=== PATIENT | female | born 1930 | race Caucasian/White ===

== ENCOUNTER → 2016-10-20 | Outpatient (CLI) | payer MEDICARE, OTHER ==
[2014-08-20 15:00] VITALS: BP 149/62
[~2016-10-20] MED LIST: ALLO300T PO; ASPI-482 PO; FOLI0.8T3 PO; FURO80TA3 PO; ISOS30TA4 PO; LISI-338 PO; METO25TA9 PO; OMEP20CA9 PO; POTA20TA12 PO; PROP150T2 PO; WARF3TAB7 PO; WARF4TAB7 PO
--- NOTE | 2016-10-21 16:24 | CARD ---
APPROVED REPORT EXAM: Two-dimensional and M-mode echocardiogram with Doppler and color Doppler. Other Information Quality : GoodHR: 61bpm Rhythm : NSR INDICATION Fatigue, Short of air 2D DIMENSIONS RVDd3.3 (2.9-3.5cm)Left Atrium(2D)4.8 (1.6-4.0cm) IVSd1.1 (0.7-1.1cm)Aortic Root(2D)2.6 (2.0-3.7cm) LVDd3.7 (3.9-5.9cm)LVOT Diameter2.3 (1.8-2.4cm) PWd1.2 (0.7-1.1cm)LVDs2.8 (2.5-4.0cm) FS (%) 23.6 %SV28.2 ml LVEF(%)50.0 (>50%) Aortic Valve AoV Peak Aston.285.8cm/sAoV VTI64.6cm AO Peak GR.32.7mmHgLVOT Peak Aston.87.3cm/s AO Mean GR.16mmHgAVA (VMAX)1.24cm2 AI P 1/2 [id number] Mitral Valve MV E Bkiabrmg732.5cm/sMV E Peak Gr.5mmHg MV DECEL [id number] A Zsydkiqv098.0cm/s MV E Mean Gr.2mmHgE/A Ratio1.1 MV A [id number] Pulmonary Valve PV Peak Rgdrkwlb091.5cm/s Tricuspid Valve TR P. Snqpotqw366uz/sTR Peak Gr.31mmHg Pulmonary Vein S1 Xybyjnjr04.3cm/sD2 Okxlsxba76.5cm/s PVa vvecrott56ityx LEFT VENTRICLE The left ventricle cavity is small. There is mild concentric left ventricular hypertrophy. The left v entricular systolic function is normal and the ejection fraction is within normal range. The Ejection Fraction is 50 %. There is normal LV segmental wall motion. Transmitral Doppler flow pattern is Grad e II-pseudonormal filling dynamics. RIGHT VENTRICLE The right ventricle is normal size. There is normal right ventricular wall thickness. The right ventr icular systolic function is normal. ATRIA The left atrium is moderately dilated. The right atrium size is normal. The interatrial septum is int act with no evidence for an atrial septal defect or patent foramen ovale as noted on 2-D or Doppler i maging. AORTIC VALVE Doppler and Color Flow revealed mild to moderate aortic regurgitation. 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 Flow velocities across the prosthetic valve are mildly elevated at 2.9 m/s but it opens well. The aortic valve maximu m pressure gradient is 33 mmHg and mean pressure gradient is 16 mmHg. This is a normal finding in a m echanical valve MITRAL VALVE Mitral annular calcification is mild. The mitral valve leaflets are thickened. There is no evidence o f mitral valve prolapse. There is no mitral valve stenosis. Doppler and Color Flow revealed mild to m oderate mitral regurgitation. TRICUSPID VALVE Doppler and Color Flow revealed mild tricuspid regurgitation. The pulmonary artery systolic pressure is estimated at 34 mmHg. There is mild pulmonary hypertension. PULMONIC VALVE The pulmonary valve is not well visualized but appears to opens well. Doppler and Color Flow revealed no pulmonic valvular regurgitation. GREAT VESSELS The aortic root is normal in size. The ascending aorta is mildly dilated. The pulmonary artery is nor mal. The IVC is normal in size and collapses >50% with inspiration. PERICARDIAL EFFUSION There is no evidence of significant pericardial effusion. Critical Notification Critical Value: No <Conclusion> The left ventricular systolic function is normal and the ejection fraction is within normal range. The Ejection Fraction is 50 %. Transmitral Doppler flow pattern is Grade II-pseudonormal filling dynamics. There is mild concentric left ventricular hypertrophy. The left atrium is moderately dilated. The right atrium size is normal. Doppler and Color Flow revealed mild to moderate mitral regurgitation. Mitral annular calcification is mild. The mitral valve leaflets are thickened. Doppler and Color Flow revealed mild tricuspid regurgitation. The pulmonary artery systolic pressure is estimated at 34 mmHg. There is mild pulmonary hypertension. The pulmonary valve is not well visualized but appears to opens well. Doppler and Color Flow revealed no pulmonic valvular regurgitation. The ascending aorta is mildly dilated. Doppler and Color Flow revealed mild to moderate aortic regurgitation. 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 Flow velocities across the prosthetic valve are mildly elevated at 2.9 m/s but it opens well. The aortic valve maximum pressure gradient is 33 mmHg and mean pressure gradient is 16 mmHg. This is a normal finding in a mechanical valve There is no evidence of significant pericardial effusion.
== END | disposition home or self-care (01) ==
LOC: ECHO 12:30
PROVIDERS: ATTEND Internal Medicine Cardiovascular Disease
DX: I08.3 Combined rheumatic disorders of mitral, aortic and tricuspid valves (principal); R53.83 Other fatigue; R06.02 Shortness of breath; Z95.2 Presence of prosthetic heart valve
CPT/HCPCS: 93306

== ENCOUNTER → 2018-12-22 | Outpatient (CLI) | payer MEDICARE, OTHER ==
[2014-08-20 15:00] VITALS: BP 149/62
[~2018-12-22] MED LIST changes: +METO-239 PO; -METO25TA9 PO; +OMEP20CA10 PO; -OMEP20CA9 PO; +WARF3TAB50 PO; -WARF3TAB7 PO; +WARF4TAB64 PO; -WARF4TAB7 PO
--- NOTE | 2018-12-22 16:34 | CARD ---
MR#: [id number] Date of Study: 12/22/2018 Ordering Physician: MARISSA HORAN, Referring Physician: MARISSA HORAN, Tech: Ros Santamaria SHRADDHA APPROVED REPORT EXAM: Two-dimensional and M-mode echocardiogram with Doppler and color Doppler. Other Information Quality : AverageHR: 53bpm Rhythm : Bradycardia INDICATION Aortic Valve replacement Surgery/Intervention Status/Post Aortic Valve Replacement: Date: 1996 2D DIMENSIONS RVDd3.0 (2.9-3.5cm)Left Atrium(2D)4.2 (1.6-4.0cm) IVSd1.8 (0.7-1.1cm)Aortic Root(2D)3.2 (2.0-3.7cm) LVDd5.0 (3.9-5.9cm)LVOT Diameter2.2 (1.8-2.4cm) PWd1.3 (0.7-1.1cm)LVDs3.8 (2.5-4.0cm) FS (%) 25.2 %SV59.3 ml LVEF(%)50.0 (>50%) M-Mode DIMENSIONS Left Atrium(MM)4.80 (2.5-4.0cm)Aortic Root3.61 (2.2-3.7cm) Aortic Valve AoV Peak Aston.294.3cm/sAoV VTI64.7cm AO Peak GR.34.7mmHgLVOT Peak Aston.66.6cm/s AO Mean GR.16mmHgAVA (VMAX)0.83cm2 JESUS (VTI)0.57iq4ZY P 1/2 Ajgx387cm Mitral Valve MV E Ujmjdhiy159.2cm/sMV E Peak Gr.9mmHg MV DECEL [id number] A Fxsvfmix74.4cm/s MV E Mean Gr.3mmHgE/A Ratio1.6 Pulmonary Valve PV Peak Iwssyrjz09.0cm/s Tricuspid Valve TR P. Zohmlhsg020xm/sRAP YNOGZEGV2syYu TR Peak Gr.12yhTjXFIM12zyPr LEFT VENTRICLE The left ventricle is normal size. There is moderate concentric left ventricular hypertrophy. Left ve ntricle systolic function is low normal. The Ejection Fraction is 50-55%. There is normal LV segmenta l wall motion. Transmitral Doppler flow pattern is abnormal. RIGHT VENTRICLE The right ventricle is normal size. There is normal right ventricular wall thickness. The right ventr icular systolic function is normal. ATRIA The left atrium is mildly dilated. The right atrium size is normal. The interatrial septum is intact with no evidence for an atrial septal defect or patent foramen ovale as noted on 2-D or Doppler imagi ng. AORTIC VALVE Aortic valve post replacemant with a mechanical aortic valve in place. Doppler and Color Flow reveale d mild to moderate aortic regurgitation. The mechanical aortic valve has a maximum pressure gradient of 35 mmHg and mean pressure gradient of 16 mmHg and opens well. The mechanical aortic valve appears well seated. MITRAL VALVE The mitral valve is thickened but opens well. There is no evidence of mitral valve prolapse. There is no mitral valve stenosis. Doppler and Color-flow revealed mild mitral regurgitation. TRICUSPID VALVE The tricuspid valve is normal in structure and function. Doppler and Color Flow revealed mild tricusp id regurgitation. The PA pressure was estimated at 26 mmHg. There is no tricuspid valve prolapse or v egetation. There is no tricuspid valve stenosis. PULMONIC VALVE The pulmonic valve is not well visualized. GREAT VESSELS The aortic root is normal in size. The ascending aorta is moderately dilated at 4.7cm. The IVC is nor mal in size and collapses >50% with inspiration. PERICARDIAL EFFUSION There is no evidence of significant pericardial effusion. Critical Notification Critical Value: No <Conclusion> The left ventricle is normal size. Left ventricle systolic function is low normal. The Ejection Fraction is 50-55%. There is normal LV segmental wall motion. There is moderate concentric left ventricular hypertrophy. Aortic valve post replacemant with a mechanical aortic valve in place. The mechanical aortic valve appears well seated. The mechanical aortic valve has a maximum pressure gradient of 35 mmHg and mean pressure gradient of 16 mmHg and opens well. Doppler and Color Flow revealed mild to moderate aortic regurgitation. Doppler and Color-flow revealed mild mitral regurgitation. Doppler and Color Flow revealed mild tricuspid regurgitation. The PA pressure was estimated at 26 mmHg. The ascending aorta is moderately dilated at 4.7cm. Signed by : Marissa Horan MD Electronically Approved : 12/22/2018 16:34:17
== END | disposition home or self-care (01) ==
LOC: ECHO 14:46
PROVIDERS: ATTEND Internal Medicine Cardiovascular Disease
DX: I08.3 Combined rheumatic disorders of mitral, aortic and tricuspid valves (principal); Z95.2 Presence of prosthetic heart valve
CPT/HCPCS: 93306

== ENCOUNTER 2019-03-16 22:34 | Inpatient (IN) | payer MEDICARE, OTHER ==
[~2019-03-16] VITALS: Ht 170.2 cm; Wt 79.4 kg
[~2019-03-16 22:34] MED LIST changes: +AMLO5TAB10 PO; +CYCL10TA2 PO; +FURO20TA3 PO; +HYDR-2761 PO; -OMEP20CA10 PO; +OMEP20CA16 PO
[2019-03-16] MEDS ORDERED: IV NORMAL SALINE 1000ML BAG 1,000 ML IV ONE (23:00)
[2019-03-16 23:03] LABS: BASO # 0.1 x10^3/uL (0.0-0.2); BASO % 1 % (0-3); EOS # 0.1 x10^3/uL (0.0-0.7); EOS % 1 % (0-3); HEMATOCRIT 22.2 % (36.0-47.0); HEMOGLOBIN 7.4 g/dL (12.0-15.5); LYMPH # 0.9 x10^3/uL (1.0-4.8); LYMPH % 10 % (24-48); MEAN CORPUSCULAR HEMOGLOBIN 31 pg (25-35); MEAN CORPUSCULAR HGB CONC 33 g/dL (31-37); MEAN CORPUSCULAR VOLUME 92 fL (79-100); MONO # 0.7 x10^3/uL (0.0-1.1); MONO % 8 % (0-9); NEUT # 7.4 x10^3/uL (1.8-7.7); NEUT % 80 % (31-73); PLATELET COUNT 493 x10^3/uL (140-400); RED CELL DISTRIBUTION WIDTH 15.7 % (11.5-14.5); WHITE BLOOD COUNT 9.2 x10^3/uL (4.0-11.0)
[2019-03-16 23:12] LABS: PROTHROMBIN TIME PATIENT 40.8 SEC (11.7-14.0)
[2019-03-16 23:13] LABS: CALCIUM 8.2 mg/dL (8.5-10.1); CREATININE 3.2 mg/dL (0.6-1.0); GFR 13.6
[2019-03-16 23:18] LABS: ALBUMIN 2.7 g/dL (3.4-5.0); ALBUMIN/GLOBULIN RATIO 0.8 (1.0-1.7); TOTAL BILIRUBIN 0.6 mg/dL (0.2-1.0); TOTAL PROTEIN 6.3 g/dL (6.4-8.2)
--- NOTE | 2019-03-16 23:23 | PHYS DOC ---
Past Medical History Past Medical History: Hypertension, Other Additional Past Medical Histor: ESRD Past Surgical History: Other Additional Past Surgical Histo: ARTIFICAL HEART VALVE Alcohol Use: None Drug Use: None Adult General Chief Complaint Chief Complaint: MECHANICAL FALL HPI HPI 88-year-old female presents to the emergency department with complaints of altered mental status, fall. Patient was seen at this facility approximately one half weeks ago by me after a fall with left hip fracture. Patient was admitted at that time taken to surgery. She was discharged to rehabilitation, according to rehabilitation facility patient has been altered all day, she apparently fell tonight because she thought there was a massacre in the facility. Patient is clearly different from her initial presentation to me. She is able to answer some questions appropriately however then speaks without making sense. She denies any chest pain, shortness of breath, nausea, vomiting. She does complain of left leg pain. Review of Systems Review of Systems Respiratory: Denies cough or shortness of breath [] Cardiovascular: No additional information not addressed in HPI [] GI: Denies abdominal pain, nausea, vomiting, bloody stools or diarrhea [] Musculoskeletal:left hip/leg pain All other systems were reviewed and found to be within normal limits, except as documented in this note. Current Medications Current Medications Current Medications Medications (Trade) Dose Ordered Sig/Hiram Start Time Stop Time Status Last Admin Dose Admin Sodium Chloride 1,000 ml @ 1,000 mls/hr 1X ONCE 03/16/19 23:00 03/16/19 23:59 DC 03/16/19 22:58 1,000 MLS/HR Allergies Allergies Allergies Coded Allergies Type Severity Reaction Last Updated Verified Penicillins Allergy Intermediate 03/03/19 Yes Physical Exam Physical Exam Constitutional: Well developed, confused HENT: Normocephalic, atraumatic, bilateral external ears normal, oropharynx dry, nose normal. [] Eyes: PERRLA, EOMI, conjunctiva normal, no discharge. [] Cardiovascular: Bradycardia Lungs & Thorax: Bilateral breath sounds clear to auscultation [] Abdomen: Bowel sounds normal, soft, no tenderness, no masses, no pulsatile masses. [] Skin: Warm, dry, no erythema, no rash. [] Extremities: no deformity, 2-3 + edema, wheeping appreciated to right lower ext, open wound to right calf. [] Neurologic: Alert and oriented X 2, no focal deficits noted. [] Psychologic: altered mental status, poor judgement [] Current Patient Data Vital Signs Vital Signs Date Time Temp Pulse Resp B/P (MAP) Pulse Ox O2 Delivery O2 Flow Rate FiO2 03/17/19 00:47 57 17 97 03/16/19 22:35 97.8 101/44 (63) Room Air 97.8 Lab Values Laboratory Tests Test 03/16/19 22:45 03/16/19 23:30 03/17/19 00:30 White Blood Count 9.2 x10^3/uL (4.0-11.0) Red Blood Count 2.40 x10^6/uL (3.50-5.40) L Hemoglobin 7.4 g/dL (12.0-15.5) L Hematocrit 22.2 % (36.0-47.0) L Mean Corpuscular Volume 92 fL (79-100) Mean Corpuscular Hemoglobin 31 pg (25-35) Mean Corpuscular Hemoglobin Concent 33 g/dL (31-37) Red Cell Distribution Width 15.7 % (11.5-14.5) H Platelet Count 493 x10^3/uL (140-400) H Neutrophils (%) (Auto) 80 % (31-73) H Lymphocytes (%) (Auto) 10 % (24-48) L Monocytes (%) (Auto) 8 % (0-9) Eosinophils (%) (Auto) 1 % (0-3) Basophils (%) (Auto) 1 % (0-3) Neutrophils # (Auto) 7.4 x10^3/uL (1.8-7.7) Lymphocytes # (Auto) 0.9 x10^3/uL (1.0-4.8) L Monocytes # (Auto) 0.7 x10^3/uL (0.0-1.1) Eosinophils # (Auto) 0.1 x10^3/uL (0.0-0.7) Basophils # (Auto) 0.1 x10^3/uL (0.0-0.2) Prothrombin Time 40.8 SEC (11.7-14.0) H Prothrombin Time INR 4.2 (0.8-1.1) H Sodium Level 124 mmol/L (136-145) L Potassium Level 5.0 mmol/L (3.5-5.1) Chloride Level 93 mmol/L (98-107) L Carbon Dioxide Level 25 mmol/L (21-32) Anion Gap 6 (6-14) Blood Urea Nitrogen 46 mg/dL (7-20) H Creatinine 3.2 mg/dL (0.6-1.0) H Estimated GFR (Cockcroft-Gault) 13.6 BUN/Creatinine Ratio 14 (6-20) Glucose Level 182 mg/dL (70-99) H Lactic Acid Level 2.1 mmol/L (0.4-2.0) H Calcium Level 8.2 mg/dL (8.5-10.1) L Total Bilirubin 0.6 mg/dL (0.2-1.0) Aspartate Amino Transferase (AST) 35 U/L (15-37) Alanine Aminotransferase (ALT) 30 U/L (14-59) Alkaline Phosphatase 72 U/L (46-116) Troponin I Quantitative < 0.017 ng/mL (0.000-0.055) Total Protein 6.3 g/dL (6.4-8.2) L Albumin 2.7 g/dL (3.4-5.0) L Albumin/Globulin Ratio 0.8 (1.0-1.7) L O2 Saturation 91 % (92-99) L Arterial Blood pH 7.39 (7.35-7.45) Arterial Blood pCO2 at Patient Temp 36 mmHg (35-46) Arterial Blood pO2 at Patient Temp 64 mmHg (65-108) L Arterial Blood pO2 (Temp corrected) mmHg Arterial Blood HCO3 21 mmol/L (21-28) Arterial Blood Base Excess -4 mmol/L (-3-3) L FiO2 28 Urine Collection Type U cath Urine Color Yellow Urine Clarity Clear Urine pH 5.0 Urine Specific Brewster 1.010 Urine Protein Negative mg/dL (NEG-TRACE) Urine Glucose (UA) Negative mg/dL (NEG) Urine Ketones (Stick) Negative mg/dL (NEG) Urine Blood Negative (NEG) Urine Nitrite Negative (NEG) Urine Bilirubin Negative (NEG) Urine Urobilinogen Dipstick 0.2 mg/dL (0.2 mg/dL) Urine Leukocyte Esterase Negative (NEG) Urine RBC 0 /HPF (0-2) Urine WBC 0 /HPF (0-4) Urine Squamous Epithelial Cells Few /LPF Urine Amorphous Sediment Present /HPF Urine Bacteria 0 /HPF (0-FEW) Urine Mucus Slight /LPF Laboratory Tests 03/16/19 22:45 Laboratory Tests 03/16/19 22:45 EKG EKG [] Radiology/Procedures Radiology/Procedures [] Course & Med Decision Making Course & Med Decision Making Pertinent Labs and Imaging studies reviewed. (See chart for details) []88-year-old female presents to the emergency department with complaints of altered mental status, fall. Patient was seen at this facility approximately one half weeks ago by me after a fall with left hip fracture. Patient was admitted at that time taken to surgery. She was discharged to rehabilitation, according to rehabilitation facility patient has been altered all day, she apparently fell tonight because she thought there was a massacre in the facility. Patient is clearly different from her initial presentation to me. She is able to answer some questions appropriately however then speaks without making sense. She denies any chest pain, shortness of breath, nausea, vomiting. She does complain of left leg pain. Laboratory values reviewed, hemoglobin 7.4, creatinine 3.2, lactic acid 2.1, s odium 124 and INR 4.2 X-ray of left hip reveals no evidence of acute fracture x-ray left knee reveals no evidence of acute fracture CT the head reviewed She presents with altered mental status evidence of metabolic encephalopathy appreciated on laboratory studies, she does have acute on chronic kidney injury as well as mild lactic acidosis. No evidence of acute infectious process at this time. Consultation to cardiology given new onset bradycardia likely secondary to metoprolol succinate which will be held IVF continued with admission at 75ml/hr Repeat labs for the AM Admit to the ICU given bradycardia/decreased responsiveness DNR/DNI Mary Disclaimer Mary Disclaimer This electronic medical record was generated, in whole or in part, using a voice recognition dictation system. Departure Departure Impression: Primary Impression: Metabolic encephalopathy Additional Impressions: Hyponatremia Acute on chronic renal failure Coagulopathy Lactic acidosis Disposition: ADMITTED INPATIENT Admitting Physician: FRANCES Condition: GUARDED Referrals: KHUSHI RAY MD (PCP) Critical Care Time Critical care time was 40 minutes exclusive of procedures. Problem Qualifiers Additional Impressions: Acute on chronic renal failure Acute renal failure type: unspecified Chronic kidney disease stage: unspecified stage Qualified Codes: N17.9 - Acute kidney failure, unspecified; N18.9 - Chronic kidney disease, unspecified DANELLE BLACK MD Mar 16, 2019 23:23
[2019-03-16 23:39] LABS: BASE EXCESS ABG -4 mmol/L (-3-3); HCO3 ABG 21 mmol/L (21-28); PCO2 ABG 36 mmHg (35-46); PO2 ABG 64 mmHg (65-108); SAT O2 ABG 91 % (92-99)
[2019-03-16 23:41] LABS: FIO2 ABG 28
[2019-03-17] VITALS (17 sets, daily range): BP systolic 71–136; BP diastolic 31–73
[2019-03-17 00:39] LABS: BILIRUBIN,URINE NEGATIVE (NEG); CLARITY,URINE CLEAR; COLOR,URINE YELLOW; NITRITE,URINE NEGATIVE (NEG); PROTEIN,URINE NEGATIVE (NEG-TRACE); UROBILINOGEN,URINE 0.2 mg/dL (0.2 mg/dL)
[2019-03-17 00:44] LABS: AMORPHOUS SEDIMENT,UR PRESENT /HPF; BACTERIA,URINE 0 /HPF (0-FEW); RBC,URINE 0 /HPF (0-2); SQUAMOUS EPITHELIAL CELL,UR FEW /LPF; WBC,URINE 0 /HPF (0-4)
[2019-03-17] MEDS ORDERED: IV NORMAL SALINE 1000ML BAG 1,000 ML IV ONE (01:00)
[2019-03-17] MEDS ORDERED: ONDANSETRON PF 4 MG/2 ML VIAL. IV PRN (01:00)
--- NOTE | 2019-03-17 01:14 | RAD ---
Exam: CT head INDICATION: Fall TECHNIQUE: Sequential axial images through the head were obtained without the administration of IV contrast. Comparisons: 03/13/2019 FINDINGS: No focal parenchymal lesion or hemorrhage is identified. There is no midline shift or sulcal effacement. Patchy hypodensity in the periventricular white matter which is similar when compared to the prior exam. No acute vascular territory infarction is identified. Roberts-white distinction is preserved. The ventricular system is within normal limits without compression hydrocephalus. The basal cisterns are well maintained. The visualized portions of the paranasal sinuses and mastoid air cells are well-pneumatized. No acute fractures. IMPRESSION: Chronic ischemic change without acute intracranial abnormality. Exposure: One or more of the following in the visualized dose reduction techniques were utilized for this examination: 1. Automated exposure control 2. Adjustment of the MA and/or KV according to patient size Use of iterative of reconstructive technique Electronically signed by: Citlalli Charles MD (03/17/2019 1:11 AM) [facility]
[2019-03-17] MEDS ORDERED: TIZA4TAB2 PO (03:56)
[2019-03-17] MEDS ORDERED: ACET500T33 PO (03:56)
--- NOTE | 2019-03-17 04:24 | RAD ---
Exam: Left hip 2 views INDICATION: Fall TECHNIQUE: Frontal and lateral views of the left hip Comparisons: None FINDINGS: Left hip arthroplasty changes are noted. No acute fractures are identified. Soft tissues are unremarkable. Joint spaces are well-maintained. IMPRESSION: Left hip arthroplasty without evidence of acute osseous abnormality. Electronically signed by: Citlalli Charles MD (03/17/2019 4:21 AM) [facility]
--- NOTE | 2019-03-17 04:25 | RAD ---
Exam: Left knee 2 views INDICATION: Fall TECHNIQUE: Frontal and lateral views of the left knee Comparisons: None FINDINGS: Small suprapatellar effusion is noted. No acute or healed fractures. Joint spaces are well-maintained. Bone mineralization is normal. IMPRESSION: Small suprapatellar effusion without underlying osseous abnormality identified. Electronically signed by: Citlalli Charles MD (03/17/2019 4:22 AM) [facility]
[2019-03-17] MEDS ORDERED: ACETAMINOPHEN 500 MG TABLET PO PRN ×2 (08:45)
[2019-03-17] MEDS: IV NORMAL SALINE 1000ML BAG 1,000 ML IV SCH ×2 (08:45→20:37)
[2019-03-17] MEDS ORDERED: ACETAMINOPHEN/CODEINE 300/30MG TABLET. PO PRN (08:45)
[2019-03-17] MEDS ORDERED: ONDANSETRON PF 4 MG/2 ML VIAL. IVP PRN (08:45)
[2019-03-17] MEDS ORDERED: tiZANidine 4 MG TABLET. PO PRN (08:45)
[2019-03-17] MEDS: ALLOPURINOL 300 MG TABLET. PO SCH (09:00)
[2019-03-17] MEDS: amLODIPine BESYLATE 5 MG TABLET PO SCH (09:00)
[2019-03-17] MEDS ORDERED: FUROSEMIDE 20 MG TABLET PO SCH (09:00)
[2019-03-17] MEDS: LISINOPRIL 5 MG TABLET. PO SCH (09:00)
[2019-03-17] MEDS: HYDROcodone/APAP 5/325MG 1 TAB TABLET PO PRN ×2 (09:21→16:47)
[2019-03-17] MEDS: FOLIC/VIT B COMP W-C (RENAL) TABLET. PO SCH (09:21)
[2019-03-17] MEDS: PROPAFENONE 150 MG TABLET. PO SCH ×2 (09:22→14:49)
[2019-03-17] MEDS: ISOSORBIDE MONONITRATE ER 30 MG TAB.ER.24H PO SCH (09:22)
[2019-03-17 09:50] LABS: PROTHROMBIN TIME PATIENT 46.9 SEC (11.7-14.0)
[2019-03-17] MEDS ORDERED: PHYTONADIONE 10 MG/ML AMPUL. SQ ONE (10:15)
--- NOTE | 2019-03-17 10:42 | PDOC1 ---
History and Physical Date of Admission Date of Admission DATE: 03/17/19 TIME: 10:35 Identification/Chief Complaint Chief Complaint fall at [facility] Source Source: Caregiver, Chart review, Patient History of Present Illness History of Present Illness VEry pleasant 88 yo white female, she fell at [facility] from her walker, able to stand after, no head trauma or LOC, BUT SHE just had a recent hips sx, left side, here at [facility] last 10 days and on warf with INR 3 and now 4. LEft hip dressing is dry, Gray imaging shows stable alignment of hip and no injurries, She feels better, We will transfer her out of ICU, allow her to eat, Give k 5 mgs PO or SQ x 1 and recheck INR tmr, HOld warf.. She is a DNR< Plan dw her and [employer]ELOPER at bedside SHe has cardiac hx so she was already on warf even prior to hip sx Past Medical History Cardiovascular: HTN, Aortic stenosis GI: GERD Heme/Onc: No pertinent hx Hepatobiliary: No pertinent hx Psych: No pertinent hx Rheumatologic: No pertinent hx Infectious disease: No pertinent hx Renal/: Chronic renal insuff Endocrine: No pertinent hx Past Surgical History Past Surgical History: Other ( sx) Family History Family History: No Significant Social History Smoke: No ALCOHOL: none Drugs: None Current Problem List Problem List Problems Medical Problems: (1) Acute on chronic renal failure Status: Acute (2) Coagulopathy Status: Acute (3) Hyponatremia Status: Acute (4) Lactic acidosis Status: Acute (5) Metabolic encephalopathy Status: Acute Current Medications Current Medications Current Medications Sodium Chloride 1,000 ml @ 1,000 mls/hr 1X ONCE IV Last administered on at 22:58; Start 03/16/19 at 23:00; Stop 03/16/19 at 23:59; Status DC Ondansetron HCl (Zofran) 4 mg PRN Q8HRS PRN IV NAUSEA/VOMITING; Start 03/17/19 at 01:00; Stop 03/18/19 at 00:59 Sodium Chloride 1,000 ml @ 75 mls/hr 1X ONCE IV ; Start 03/17/19 at 01:00; Stop 03/17/19 at 14:19 Acetaminophen (Tylenol) 500 mg PRN Q6HRS PRN PO MILD PAIN / TEMP; Start 03/17/19 at 08:45 Acetaminophen/ Codeine Phosphate (Tylenol #3) 1 tab PRN Q6HRS PRN PO PAIN; Start 03/17/19 at 08:45 Ondansetron HCl (Zofran) 4 mg PRN Q6HRS PRN IVP NAUSEA/VOMITING; Start 03/17/19 at 08:45 Acetaminophen (Tylenol) 1,000 mg TID PRN PRN PO PAIN; Start 03/17/19 at 08:45; Status Cancel Allopurinol (Zyloprim) 300 mg DAILY PO ; Start 03/17/19 at 09:00 Amlodipine Besylate (Norvasc) 5 mg DAILY PO ; Start 03/17/19 at 09:00 Cyclobenzaprine HCl (Flexeril) 10 mg PRN Q8HRS PRN PO MUSCLE SPASMS; Start 03/17/19 at 08:45 Vitamin B Complex/ Vitamin C (Renate-Vonda) 1 tab DAILY PO Last administered on 03/17/19at 09:21; Start 03/17/19 at 09:00 Furosemide (Lasix) 20 mg DAILY PO ; Start 03/17/19 at 09:00; Stop 03/17/19 at 08:41; Status DC Acetaminophen/ Hydrocodone Bitart (Lortab 5/325) 1 tab PRN Q4HRS PRN PO MODERATE PAIN Last administered on 03/17/19at 09:21; Start 03/17/19 at 08:45 Isosorbide Mononitrate (Imdur) 30 mg DAILY PO Last administered on 03/17/19at 09:22; Start 03/17/19 at 09:00 Lisinopril (Prinivil) 5 mg DAILY PO ; Start 03/17/19 at 09:00 Propafenone HCl (Rythmol) 150 mg TID PO Last administered on 03/17/19at 09:22; Start 03/17/19 at 09:00 Tizanidine HCl (Zanaflex) 4 mg PRN TID PRN PO spasms; Start 03/17/19 at 08:45; Status Cancel Pantoprazole Sodium (Protonix) 40 mg DAILYAC PO ; Start 03/18/19 at 07:30 Sodium Chloride 1,000 ml @ 80 mls/hr [id number] IV ; Start 03/17/19 at 08:45 Phytonadione (Vitamin K Ampule) 5 mg 1X ONCE SQ ; Start 03/17/19 at 10:15; Stop 03/17/19 at 10:16; Status DC Active Scripts Active Hydrocodone-Apap 5-325 (Hydrocodone Bit/Acetaminophen) 1 Tab Tablet 1 Tab PO PRN Q4HRS PRN Cyclobenzaprine Hcl 10 Mg Tablet 10 Mg PO PRN Q8HRS PRN Reported Tizanidine Hcl 4 Mg Tablet 4 Mg PO Q8HRS PRN Tylenol Extra Strength (Acetaminophen) 500 Mg Tablet 1,000 Mg PO TID PRN PRN Amlodipine Besylate 5 Mg Tablet 5 Mg PO DAILY 30 Days Furosemide 20 Mg Tablet 20 Mg PO DAILY Nephro-Vonda Tablet (Folic Acid/Vitamin B Comp W-C) 0.8 Mg Tablet 1 Tab PO DAILY Isosorbide Mononitrate Er (Isosorbide Mononitrate) 30 Mg Tab.er.24h 1 Tab PO DAILY Lisinopril 5 Mg Tablet 1 Tab PO DAILY Omeprazole 20 Mg Capsule.dr 1 Cap PO DAILY Metoprolol Succinate ( Xl ) (Metoprolol Succinate) 25 Mg Tab.er.24h 1 Tab PO DAILY Warfarin Sodium 3 Mg Tablet 1 Tab PO DAILY Allopurinol 300 Mg Tablet 1 Tab PO DAILY Propafenone Hcl 150 Mg Tablet 150 Mg PO TID Allergies Allergies: Coded Allergies: Penicillins (Verified Allergy, Intermediate, 03/03/19) ROS Review of System some hip soreness, all else is neg, 14 pt reviewed with her Physical Exam General: Alert, Oriented X3, Cooperative, No acute distress HEENT: Atraumatic, PERRLA Lungs: Clear to auscultation, Normal air movement Heart: S1S2, RRR, no thrills, no rubs Cardiovascular: S1, S2 Abdomen: Normal bowel sounds, Soft, No tenderness, No hepatosplenomegaly, No masses Rectal Exam: not examined PELVIC: Nml ext genitalia Extremities: No clubbing, No cyanosis, Other (dry left hip dressing) Skin: No rashes, No breakdown, No significant lesion Neuro: Normal gait Psych/Mental Status: Mental status NL, Mood NL Vitals Vitals Vital Signs Date Time Temp Pulse Resp B/P (MAP) Pulse Ox O2 Delivery O2 Flow Rate FiO2 03/17/19 09:22 63 110/56 12/28/19 09:21 24 96 Nasal Cannula 2.0 03/17/19 08:00 98.0 98.0 Labs Labs Laboratory Tests Test 03/16/19 22:45 03/16/19 22:51 03/16/19 23:30 03/17/19 00:30 White Blood Count 9.2 x10^3/uL (4.0-11.0) Red Blood Count 2.40 x10^6/uL (3.50-5.40) Hemoglobin 7.4 g/dL (12.0-15.5) Hematocrit 22.2 % (36.0-47.0) Mean Corpuscular Volume 92 fL (79-100) Mean Corpuscular Hemoglobin 31 pg (25-35) Mean Corpuscular Hemoglobin Concent 33 g/dL (31-37) Red Cell Distribution Width 15.7 % (11.5-14.5) Platelet Count 493 x10^3/uL (140-400) Neutrophils (%) (Auto) 80 % (31-73) Lymphocytes (%) (Auto) 10 % (24-48) Monocytes (%) (Auto) 8 % (0-9) Eosinophils (%) (Auto) 1 % (0-3) Basophils (%) (Auto) 1 % (0-3) Neutrophils # (Auto) 7.4 x10^3/uL (1.8-7.7) Lymphocytes # (Auto) 0.9 x10^3/uL (1.0-4.8) Monocytes # (Auto) 0.7 x10^3/uL (0.0-1.1) Eosinophils # (Auto) 0.1 x10^3/uL (0.0-0.7) Basophils # (Auto) 0.1 x10^3/uL (0.0-0.2) Prothrombin Time 40.8 SEC (11.7-14.0) Prothromb Time International Ratio 4.2 (0.8-1.1) Sodium Level 124 mmol/L (136-145) Potassium Level 5.0 mmol/L (3.5-5.1) Chloride Level 93 mmol/L (98-107) Carbon Dioxide Level 25 mmol/L (21-32) Anion Gap 6 (6-14) Blood Urea Nitrogen 46 mg/dL (7-20) Creatinine 3.2 mg/dL (0.6-1.0) Estimated GFR (Cockcroft-Gault) 13.6 BUN/Creatinine Ratio 14 (6-20) Glucose Level 182 mg/dL (70-99) Lactic Acid Level 2.1 mmol/L (0.4-2.0) Calcium Level 8.2 mg/dL (8.5-10.1) Total Bilirubin 0.6 mg/dL (0.2-1.0) Aspartate Amino Transf (AST/SGOT) 35 U/L (15-37) Alanine Aminotransferase (ALT/SGPT) 30 U/L (14-59) Alkaline Phosphatase 72 U/L (46-116) Troponin I Quantitative < 0.017 ng/mL (0.000-0.055) AE-Fmu-B-Type Natriuretic Peptide 6050 pg/mL (0-449) Total Protein 6.3 g/dL (6.4-8.2) Albumin 2.7 g/dL (3.4-5.0) Albumin/Globulin Ratio 0.8 (1.0-1.7) Glucose (Fingerstick) 185 mg/dL (70-99) O2 Saturation 91 % (92-99) Arterial Blood pH 7.39 (7.35-7.45) Arterial Blood pCO2 at Patient Temp 36 mmHg (35-46) Arterial Blood pO2 at Patient Temp 64 mmHg (65-108) Arterial Blood pO2 (Temp corrected) mmHg Arterial Blood HCO3 21 mmol/L (21-28) Arterial Blood Base Excess -4 mmol/L (-3-3) FiO2 28 Urine Collection Type U cath Urine Color Yellow Urine Clarity Clear Urine pH 5.0 Urine Specific [place] 1.010 Urine Protein Negative mg/dL (NEG-TRACE) Urine Glucose (UA) Negative mg/dL (NEG) Urine Ketones (Stick) Negative mg/dL (NEG) Urine Blood Negative (NEG) Urine Nitrite Negative (NEG) Urine Bilirubin Negative (NEG) Urine Urobilinogen Dipstick 0.2 mg/dL (0.2 mg/dL) Urine Leukocyte Esterase Negative (NEG) Urine RBC 0 /HPF (0-2) Urine WBC 0 /HPF (0-4) Urine Squamous Epithelial Cells Few /LPF Urine Amorphous Sediment Present /HPF Urine Bacteria 0 /HPF (0-FEW) Urine Mucus Slight /LPF Test 03/17/19 02:00 03/17/19 09:04 Lactic Acid Level 0.7 mmol/L (0.4-2.0) Prothrombin Time 46.9 SEC (11.7-14.0) Prothromb Time International Ratio 5.0 (0.8-1.1) Laboratory Tests Test 03/16/19 22:45 03/16/19 22:51 03/16/19 23:30 03/17/19 00:30 White Blood Count 9.2 x10^3/uL (4.0-11.0) Red Blood Count 2.40 x10^6/uL (3.50-5.40) Hemoglobin 7.4 g/dL (12.0-15.5) Hematocrit 22.2 % (36.0-47.0) Mean Corpuscular Volume 92 fL (79-100) Mean Corpuscular Hemoglobin 31 pg (25-35) Mean Corpuscular Hemoglobin Concent 33 g/dL (31-37) Red Cell Distribution Width 15.7 % (11.5-14.5) Platelet Count 493 x10^3/uL (140-400) Neutrophils (%) (Auto) 80 % (31-73) Lymphocytes (%) (Auto) 10 % (24-48) Monocytes (%) (Auto) 8 % (0-9) Eosinophils (%) (Auto) 1 % (0-3) Basophils (%) (Auto) 1 % (0-3) Neutrophils # (Auto) 7.4 x10^3/uL (1.8-7.7) Lymphocytes # (Auto) 0.9 x10^3/uL (1.0-4.8) Monocytes # (Auto) 0.7 x10^3/uL (0.0-1.1) Eosinophils # (Auto) 0.1 x10^3/uL (0.0-0.7) Basophils # (Auto) 0.1 x10^3/uL (0.0-0.2) Prothrombin Time 40.8 SEC (11.7-14.0) Prothromb Time International Ratio 4.2 (0.8-1.1) Sodium Level 124 mmol/L (136-145) Potassium Level 5.0 mmol/L (3.5-5.1) Chloride Level 93 mmol/L (98-107) Carbon Dioxide Level 25 mmol/L (21-32) Anion Gap 6 (6-14) Blood Urea Nitrogen 46 mg/dL (7-20) Creatinine 3.2 mg/dL (0.6-1.0) Estimated GFR (Cockcroft-Gault) 13.6 BUN/Creatinine Ratio 14 (6-20) Glucose Level 182 mg/dL (70-99) Lactic Acid Level 2.1 mmol/L (0.4-2.0) Calcium Level 8.2 mg/dL (8.5-10.1) Total Bilirubin 0.6 mg/dL (0.2-1.0) Aspartate Amino Transf (AST/SGOT) 35 U/L (15-37) Alanine Aminotransferase (ALT/SGPT) 30 U/L (14-59) Alkaline Phosphatase 72 U/L (46-116) Troponin I Quantitative < 0.017 ng/mL (0.000-0.055) UW-Mqo-G-Type Natriuretic Peptide 6050 pg/mL (0-449) Total Protein 6.3 g/dL (6.4-8.2) Albumin 2.7 g/dL (3.4-5.0) Albumin/Globulin Ratio 0.8 (1.0-1.7) Glucose (Fingerstick) 185 mg/dL (70-99) O2 Saturation 91 % (92-99) Arterial Blood pH 7.39 (7.35-7.45) Arterial Blood pCO2 at Patient Temp 36 mmHg (35-46) Arterial Blood pO2 at Patient Temp 64 mmHg (65-108) Arterial Blood pO2 (Temp corrected) mmHg Arterial Blood HCO3 21 mmol/L (21-28) Arterial Blood Base Excess -4 mmol/L (-3-3) FiO2 28 Urine Collection Type U cath Urine Color Yellow Urine Clarity Clear Urine pH 5.0 Urine Specific [place] 1.010 Urine Protein Negative mg/dL (NEG-TRACE) Urine Glucose (UA) Negative mg/dL (NEG) Urine Ketones (Stick) Negative mg/dL (NEG) Urine Blood Negative (NEG) Urine Nitrite Negative (NEG) Urine Bilirubin Negative (NEG) Urine Urobilinogen Dipstick 0.2 mg/dL (0.2 mg/dL) Urine Leukocyte Esterase Negative (NEG) Urine RBC 0 /HPF (0-2) Urine WBC 0 /HPF (0-4) Urine Squamous Epithelial Cells Few /LPF Urine Amorphous Sediment Present /HPF Urine Bacteria 0 /HPF (0-FEW) Urine Mucus Slight /LPF Test 03/17/19 02:00 03/17/19 09:04 Lactic Acid Level 0.7 mmol/L (0.4-2.0) Prothrombin Time 46.9 SEC (11.7-14.0) Prothromb Time International Ratio 5.0 (0.8-1.1) VTE Prophylaxis Ordered VTE Prophylaxis Devices: Contraindicated VTE Pharmacological Prophylaxi: Contraindicated Assessment/Plan Assessment/Plan [facility] sx - PMC 10 days ago s.p distant repair 37 yrs ago on warf chronically SUpratherapeutic INR (4 highest) with no active bleeding - higher today from 3 - vit K 5 x 1m recheck INR tmr, hold warf, ok to resume all other meds GEn weakness, - back to pplace on dc MIld KODY, VMN - creat 3,.2, gentle hydrate - baseline 1,.7 -2 based on my review, recheck tmr, avoid nephrotoxins, hold lasix if on any Mild hyponatremia 132- could be sec to home lasix PLAn: as above- may eat MAy transfer out icu Avoid nephrotoxins GEntle IVF REcheck INR and bmp tmr Vit K today Hold warf DNR REBEKAH AKINS MD Mar 17, 2019 10:42
--- NOTE | 2019-03-17 15:20 | PDOC2 ---
CONSULT Date of Consult Date of Consult DATE: 03/17/19 TIME: 15:14 Reason for Consult Reason for Consult: Bradycardia Referring Physician Referring Physician: Dr. Matamoros Identification/Chief Complaint Chief Complaint Decreased level of consciousness. Source Source: Chart review History of Present Illness Reason for Visit: The patient is an 88-year-old female who was admitted through the emergency room for decreased mental status. Patient's head CT scan showed no acute changes but did show chronic small vessel ischemic changes. She's had a recent orthopedic surgery and her x-ray showed no new fractures. She has a history of chronic kidney disease as well as an mechanical aortic valve which was functioning normally on an echo 2 months ago. She is also had a history of atrial fibrillation treated with per path unknown. INR was elevated at 4.2 and Coumadin has been held. Creatinine was elevated at 3.2 with the patient been treated with fluids and monitoring. Past Medical History Cardiovascular: HTN, Aortic stenosis GI: GERD Heme/Onc: No pertinent hx Hepatobiliary: No pertinent hx Psych: No pertinent hx Rheumatologic: No pertinent hx Infectious disease: No pertinent hx Renal/: Chronic renal insuff Endocrine: No pertinent hx Past Surgical History Past Surgical History: Other (aortic valve replacement with a mechanical valve.) Family History Family History: No Significant Social History No ALCOHOL: none Drugs: None Lives: Alone Current Problem List Problem List Problems Medical Problems: (1) Acute on chronic renal failure Status: Acute (2) Coagulopathy Status: Acute (3) Hyponatremia Status: Acute (4) Lactic acidosis Status: Acute (5) Metabolic encephalopathy Status: Acute Current Medications Current Medications Current Medications Sodium Chloride 1,000 ml @ 1,000 mls/hr 1X ONCE IV Last administered on 03/16/19at 22:58; Start 03/16/19 at 23:00; Stop 03/16/19 at 23:59; Status DC Ondansetron HCl (Zofran) 4 mg PRN Q8HRS PRN IV NAUSEA/VOMITING; Start 03/17/19 at 01:00; Stop 03/18/19 at 00:59 Sodium Chloride 1,000 ml @ 75 mls/hr 1X ONCE IV ; Start 03/17/19 at 01:00; Stop 03/17/19 at 14:19; Status DC Acetaminophen (Tylenol) 500 mg PRN Q6HRS PRN PO MILD PAIN / TEMP; Start 03/17/19 at 08:45 Acetaminophen/ Codeine Phosphate (Tylenol #3) 1 tab PRN Q6HRS PRN PO MODERATE PAIN; Start 03/17/19 at 08:45 Ondansetron HCl (Zofran) 4 mg PRN Q6HRS PRN IVP NAUSEA/VOMITING; Start 03/17/19 at 08:45 Acetaminophen (Tylenol) 1,000 mg TID PRN PRN PO PAIN; Start 03/17/19 at 08:45; Status Cancel Allopurinol (Zyloprim) 300 mg DAILY PO ; Start 03/17/19 at 09:00 Amlodipine Besylate (Norvasc) 5 mg DAILY PO ; Start 03/17/19 at 09:00 Cyclobenzaprine HCl (Flexeril) 10 mg PRN Q8HRS PRN PO MUSCLE SPASMS; Start 03/17/19 at 08:45 Vitamin B Complex/ Vitamin C (Renate-Vonda) 1 tab DAILY PO Last administered on 03/17/19at 09:21; Start 03/17/19 at 09:00 Furosemide (Lasix) 20 mg DAILY PO ; Start 03/17/19 at 09:00; Stop 03/17/19 at 08:41; Status DC Acetaminophen/ Hydrocodone Bitart (Lortab 5/325) 1 tab PRN Q4HRS PRN PO SEVERE PAIN Last administered on 03/17/19at 09:21; Start 03/17/19 at 08:45 Isosorbide Mononitrate (Imdur) 30 mg DAILY PO Last administered on 03/17/19at 09:22; Start 03/17/19 at 09:00 Lisinopril (Prinivil) 5 mg DAILY PO ; Start 03/17/19 at 09:00 Propafenone HCl (Rythmol) 150 mg TID PO Last administered on 03/17/19at 14:49; Start 03/17/19 at 09:00 Tizanidine HCl (Zanaflex) 4 mg PRN TID PRN PO spasms; Start 03/17/19 at 08:45; Status Cancel Pantoprazole Sodium (Protonix) 40 mg DAILYAC PO ; Start 03/18/19 at 07:30 Sodium Chloride 1,000 ml @ 80 mls/hr [id number] IV Last administered on 03/17/19at 08:45; Start 03/17/19 at 08:45 Phytonadione (Vitamin K Ampule) 5 mg 1X ONCE SQ Last administered on 03/17/19at 10:15; Start 03/17/19 at 10:15; Stop 03/17/19 at 10:16; Status DC Active Scripts Active Hydrocodone-Apap 5-325 (Hydrocodone Bit/Acetaminophen) 1 Tab Tablet 1 Tab PO PRN Q4HRS PRN Cyclobenzaprine Hcl 10 Mg Tablet 10 Mg PO PRN Q8HRS PRN Reported Tizanidine Hcl 4 Mg Tablet 4 Mg PO Q8HRS PRN Tylenol Extra Strength (Acetaminophen) 500 Mg Tablet 1,000 Mg PO TID PRN PRN Amlodipine Besylate 5 Mg Tablet 5 Mg PO DAILY 30 Days Furosemide 20 Mg Tablet 20 Mg PO DAILY Nephro-Vonda Tablet (Folic Acid/Vitamin B Comp W-C) 0.8 Mg Tablet 1 Tab PO DAILY Isosorbide Mononitrate Er (Isosorbide Mononitrate) 30 Mg Tab.er.24h 1 Tab PO DAILY Lisinopril 5 Mg Tablet 1 Tab PO DAILY Omeprazole 20 Mg Capsule.dr 1 Cap PO DAILY Metoprolol Succinate ( Xl ) (Metoprolol Succinate) 25 Mg Tab.er.24h 1 Tab PO DAILY Warfarin Sodium 3 Mg Tablet 1 Tab PO DAILY Allopurinol 300 Mg Tablet 1 Tab PO DAILY Propafenone Hcl 150 Mg Tablet 150 Mg PO TID Allergies Allergies: Coded Allergies: Penicillins (Verified Allergy, Intermediate, 03/03/19) ROS PSYCHOLOGICAL ROS: YES: Disorientation Physical Exam General: mild distress HEENT: Atraumatic Lungs: Other (mildly decreased breath sounds.) Heart: Regular rate Abdomen: Normal bowel sounds Vitals VITALS Vital Signs Date Time Temp Pulse Resp B/P (MAP) Pulse Ox O2 Delivery O2 Flow Rate FiO2 03/17/19 14:49 65 134/56 03/17/19 12:25 Nasal Cannula 2.0 03/17/19 12:00 97.1 22 92 97.1 Labs Labs Laboratory Tests Test 03/16/19 22:45 03/16/19 22:51 03/16/19 23:30 03/17/19 00:30 White Blood Count 9.2 x10^3/uL (4.0-11.0) Red Blood Count 2.40 x10^6/uL (3.50-5.40) Hemoglobin 7.4 g/dL (12.0-15.5) Hematocrit 22.2 % (36.0-47.0) Mean Corpuscular Volume 92 fL (79-100) Mean Corpuscular Hemoglobin 31 pg (25-35) Mean Corpuscular Hemoglobin Concent 33 g/dL (31-37) Red Cell Distribution Width 15.7 % (11.5-14.5) Platelet Count 493 x10^3/uL (140-400) Neutrophils (%) (Auto) 80 % (31-73) Lymphocytes (%) (Auto) 10 % (24-48) Monocytes (%) (Auto) 8 % (0-9) Eosinophils (%) (Auto) 1 % (0-3) Basophils (%) (Auto) 1 % (0-3) Neutrophils # (Auto) 7.4 x10^3/uL (1.8-7.7) Lymphocytes # (Auto) 0.9 x10^3/uL (1.0-4.8) Monocytes # (Auto) 0.7 x10^3/uL (0.0-1.1) Eosinophils # (Auto) 0.1 x10^3/uL (0.0-0.7) Basophils # (Auto) 0.1 x10^3/uL (0.0-0.2) Prothrombin Time 40.8 SEC (11.7-14.0) Prothromb Time International Ratio 4.2 (0.8-1.1) Sodium Level 124 mmol/L (136-145) Potassium Level 5.0 mmol/L (3.5-5.1) Chloride Level 93 mmol/L (98-107) Carbon Dioxide Level 25 mmol/L (21-32) Anion Gap 6 (6-14) Blood Urea Nitrogen 46 mg/dL (7-20) Creatinine 3.2 mg/dL (0.6-1.0) Estimated GFR (Cockcroft-Gault) 13.6 BUN/Creatinine Ratio 14 (6-20) Glucose Level 182 mg/dL (70-99) Lactic Acid Level 2.1 mmol/L (0.4-2.0) Calcium Level 8.2 mg/dL (8.5-10.1) Total Bilirubin 0.6 mg/dL (0.2-1.0) Aspartate Amino Transf (AST/SGOT) 35 U/L (15-37) Alanine Aminotransferase (ALT/SGPT) 30 U/L (14-59) Alkaline Phosphatase 72 U/L (46-116) Troponin I Quantitative < 0.017 ng/mL (0.000-0.055) JF-Jfy-K-Type Natriuretic Peptide 6050 pg/mL (0-449) Total Protein 6.3 g/dL (6.4-8.2) Albumin 2.7 g/dL (3.4-5.0) Albumin/Globulin Ratio 0.8 (1.0-1.7) Glucose (Fingerstick) 185 mg/dL (70-99) O2 Saturation 91 % (92-99) Arterial Blood pH 7.39 (7.35-7.45) Arterial Blood pCO2 at Patient Temp 36 mmHg (35-46) Arterial Blood pO2 at Patient Temp 64 mmHg (65-108) Arterial Blood pO2 (Temp corrected) mmHg Arterial Blood HCO3 21 mmol/L (21-28) Arterial Blood Base Excess -4 mmol/L (-3-3) FiO2 28 Urine Collection Type U cath Urine Color Yellow Urine Clarity Clear Urine pH 5.0 Urine Specific [place] 1.010 Urine Protein Negative mg/dL (NEG-TRACE) Urine Glucose (UA) Negative mg/dL (NEG) Urine Ketones (Stick) Negative mg/dL (NEG) Urine Blood Negative (NEG) Urine Nitrite Negative (NEG) Urine Bilirubin Negative (NEG) Urine Urobilinogen Dipstick 0.2 mg/dL (0.2 mg/dL) Urine Leukocyte Esterase Negative (NEG) Urine RBC 0 /HPF (0-2) Urine WBC 0 /HPF (0-4) Urine Squamous Epithelial Cells Few /LPF Urine Amorphous Sediment Present /HPF Urine Bacteria 0 /HPF (0-FEW) Urine Mucus Slight /LPF Test 03/17/19 02:00 03/17/19 09:04 Lactic Acid Level 0.7 mmol/L (0.4-2.0) Prothrombin Time 46.9 SEC (11.7-14.0) Prothromb Time International Ratio 5.0 (0.8-1.1) Laboratory Tests Test 03/16/19 22:45 03/16/19 22:51 03/16/19 23:30 03/17/19 00:30 White Blood Count 9.2 x10^3/uL (4.0-11.0) Red Blood Count 2.40 x10^6/uL (3.50-5.40) Hemoglobin 7.4 g/dL (12.0-15.5) Hematocrit 22.2 % (36.0-47.0) Mean Corpuscular Volume 92 fL (79-100) Mean Corpuscular Hemoglobin 31 pg (25-35) Mean Corpuscular Hemoglobin Concent 33 g/dL (31-37) Red Cell Distribution Width 15.7 % (11.5-14.5) Platelet Count 493 x10^3/uL (140-400) Neutrophils (%) (Auto) 80 % (31-73) Lymphocytes (%) (Auto) 10 % (24-48) Monocytes (%) (Auto) 8 % (0-9) Eosinophils (%) (Auto) 1 % (0-3) Basophils (%) (Auto) 1 % (0-3) Neutrophils # (Auto) 7.4 x10^3/uL (1.8-7.7) Lymphocytes # (Auto) 0.9 x10^3/uL (1.0-4.8) Monocytes # (Auto) 0.7 x10^3/uL (0.0-1.1) Eosinophils # (Auto) 0.1 x10^3/uL (0.0-0.7) Basophils # (Auto) 0.1 x10^3/uL (0.0-0.2) Prothrombin Time 40.8 SEC (11.7-14.0) Prothromb Time International Ratio 4.2 (0.8-1.1) Sodium Level 124 mmol/L (136-145) Potassium Level 5.0 mmol/L (3.5-5.1) Chloride Level 93 mmol/L (98-107) Carbon Dioxide Level 25 mmol/L (21-32) Anion Gap 6 (6-14) Blood Urea Nitrogen 46 mg/dL (7-20) Creatinine 3.2 mg/dL (0.6-1.0) Estimated GFR (Cockcroft-Gault) 13.6 BUN/Creatinine Ratio 14 (6-20) Glucose Level 182 mg/dL (70-99) Lactic Acid Level 2.1 mmol/L (0.4-2.0) Calcium Level 8.2 mg/dL (8.5-10.1) Total Bilirubin 0.6 mg/dL (0.2-1.0) Aspartate Amino Transf (AST/SGOT) 35 U/L (15-37) Alanine Aminotransferase (ALT/SGPT) 30 U/L (14-59) Alkaline Phosphatase 72 U/L (46-116) Troponin I Quantitative < 0.017 ng/mL (0.000-0.055) QB-Usb-M-Type Natriuretic Peptide 6050 pg/mL (0-449) Total Protein 6.3 g/dL (6.4-8.2) Albumin 2.7 g/dL (3.4-5.0) Albumin/Globulin Ratio 0.8 (1.0-1.7) Glucose (Fingerstick) 185 mg/dL (70-99) O2 Saturation 91 % (92-99) Arterial Blood pH 7.39 (7.35-7.45) Arterial Blood pCO2 at Patient Temp 36 mmHg (35-46) Arterial Blood pO2 at Patient Temp 64 mmHg (65-108) Arterial Blood pO2 (Temp corrected) mmHg Arterial Blood HCO3 21 mmol/L (21-28) Arterial Blood Base Excess -4 mmol/L (-3-3) FiO2 28 Urine Collection Type U cath Urine Color Yellow Urine Clarity Clear Urine pH 5.0 Urine Specific [place] 1.010 Urine Protein Negative mg/dL (NEG-TRACE) Urine Glucose (UA) Negative mg/dL (NEG) Urine Ketones (Stick) Negative mg/dL (NEG) Urine Blood Negative (NEG) Urine Nitrite Negative (NEG) Urine Bilirubin Negative (NEG) Urine Urobilinogen Dipstick 0.2 mg/dL (0.2 mg/dL) Urine Leukocyte Esterase Negative (NEG) Urine RBC 0 /HPF (0-2) Urine WBC 0 /HPF (0-4) Urine Squamous Epithelial Cells Few /LPF Urine Amorphous Sediment Present /HPF Urine Bacteria 0 /HPF (0-FEW) Urine Mucus Slight /LPF Test 03/17/19 02:00 03/17/19 09:04 Lactic Acid Level 0.7 mmol/L (0.4-2.0) Prothrombin Time 46.9 SEC (11.7-14.0) Prothromb Time International Ratio 5.0 (0.8-1.1) Images Images As above. Assessment/Plan Assessment/Plan 1. Metabolic encephalopathy. Treatment is continuing and the patient has mildly improved. We'll continue to monitor lab with present treatment. 2. Mechanical aortic valve. Echocardiogram from 12/22/18 shows normal functioning of the valve and normal ejection fraction. Coumadin is on hold secondary to elevated INR. We'll continue to monitor lab. 3. History of paroxysmal atrial fibrillation. Bradycardia this morning. We'll hold her antiarrhythmics at this time. 4. Acute on chronic renal failure. Creatinine elevated at 3.2. Fluids and monitoring of lab. 5. Anemia. He will of 7.4. Continuing to monitor. 6. Elevated BNP at 6050. Troponin normal. Treatment as above with close monitoring. Thank you for allowing us to participate in the care of your patient. MARISSA ROBERTO MD Mar 17, 2019 15:20
[2019-03-17] MEDS: ALBUTEROL SULFATE 2.5 MG/3 ML NEBU. NEB PRN (22:25)
[2019-03-17] MEDS ORDERED: FUROSEMIDE 40 MG/4 ML VIAL. IVP ONE (22:30)
[2019-03-18 03:00] VITALS: BP 132/58
[2019-03-18 07:00] VITALS: BP 147/65
[2019-03-18 07:13] LABS: BASO # 0.1 x10^3/uL (0.0-0.2); BASO % 1 % (0-3); EOS % 0 % (0-3); HEMATOCRIT 22.4 % (36.0-47.0); HEMOGLOBIN 7.3 g/dL (12.0-15.5); LYMPH # 1.1 x10^3/uL (1.0-4.8); LYMPH % 11 % (24-48); MEAN CORPUSCULAR HEMOGLOBIN 30 pg (25-35); MEAN CORPUSCULAR HGB CONC 33 g/dL (31-37); MEAN CORPUSCULAR VOLUME 93 fL (79-100); MONO # 0.9 x10^3/uL (0.0-1.1); MONO % 9 % (0-9); NEUT # 8.3 x10^3/uL (1.8-7.7); NEUT % 79 % (31-73); PLATELET COUNT 491 x10^3/uL (140-400); RED BLOOD COUNT 2.41 x10^6/uL (3.50-5.40); RED CELL DISTRIBUTION WIDTH 16.1 % (11.5-14.5); WHITE BLOOD COUNT 10.5 x10^3/uL (4.0-11.0)
[2019-03-18 07:24] LABS: PROTHROMBIN TIME PATIENT 24.5 SEC (11.7-14.0)
[2019-03-18] MEDS: PANTOPRAZOLE 40 MG TABLET.DR. PO SCH (07:30)
--- NOTE | 2019-03-18 07:31 | RAD ---
AP chest. HISTORY: Concern for fluid overload AP view was taken of the chest. There are bilateral pleural effusions. Heart is enlarged. There is mild vascular congestion. Effusions have increased compared to March 06. There is mild increase left base atelectasis or infiltrate. IMPRESSION: 1. Small bilateral effusions with mild increase. 2. Vascular congestion. 3. Increased left base atelectasis or infiltrate. Electronically signed by: Shaheen Georges MD (03/18/2019 7:28 AM) [id number]
[2019-03-18 07:57] LABS: ALBUMIN 2.7 g/dL (3.4-5.0); ALBUMIN/GLOBULIN RATIO 0.9 (1.0-1.7); CALCIUM 8.4 mg/dL (8.5-10.1); CREATININE 2.2 mg/dL (0.6-1.0); POTASSIUM 4.9 mmol/L (3.5-5.1); TOTAL BILIRUBIN 0.6 mg/dL (0.2-1.0); TOTAL PROTEIN 5.7 g/dL (6.4-8.2)
[2019-03-18] MEDS: ALBUTEROL SULFATE 2.5 MG/3 ML NEBU. NEB PRN ×2 (08:17→10:52)
[2019-03-18] MEDS: ALLOPURINOL 300 MG TABLET. PO SCH (08:25)
[2019-03-18] MEDS: LISINOPRIL 5 MG TABLET. PO SCH (08:26)
[2019-03-18] MEDS: FOLIC/VIT B COMP W-C (RENAL) TABLET. PO SCH (08:26)
[2019-03-18] MEDS: amLODIPine BESYLATE 5 MG TABLET PO SCH (08:27)
[2019-03-18] MEDS: ISOSORBIDE MONONITRATE ER 30 MG TAB.ER.24H PO SCH (08:27)
[2019-03-18] MEDS: IV NORMAL SALINE 1000ML BAG 1,000 ML IV SCH (09:45)
--- NOTE | 2019-03-18 09:57 | NUR ---
Pharmacy Warfarin Dosing Note S:Pharmacy consulted to assist with anticoagulation therapy started with target INR: 2 -3 O:ERROL HODGE is a 88 year old F with Atrial Fibrillation Mechanical Aortic Valve LABS: Last INR: 2.2 Last HGB: 7.3 Last HCT: 22.4 Last PLT: 491 Last dose of Hold given on 03/17/19 at Previous Regimen: 3MG DAILY Vitamin K given: Y 5MG SQ X 1 03/17 Drug Interaction Changes: Ongoing Drug Interactions: A:INR of 2.2 is within desired range. Target range for this patient is: 2 -3 P: Warfarin dose: 2 mg Today at 1600 Bridge Therapy: None Next INR due 03/19/19 Pharmacy anticoagulation service will continue to follow. DELBERT STR[facility], 03/18/19 [id number]
[2019-03-18 11:07] VITALS: BP 146/61
--- NOTE | 2019-03-18 11:52 | PDOC ---
PROGRESS NOTES Chief Complaint Chief Complaint [facility] hip sx - PMC 10 days ago s.p distant repair 37 yrs ago on warf chronically MEchanical aortic valve SUpratherapeutic INR (4 highest) with no active bleeding - higher today from 3 - vit K 5 x 1m recheck INR tmr, hold warf, ok to resume all other meds GEn weakness, - back to pplace on dc MIld KODY, VMN - creat 3,.2, gentle hydrate - baseline 1,.7 -2 based on my review, recheck tmr, avoid nephrotoxins, hold lasix if on any Mild hyponatremia 132- could be sec to home lasix History of Present Illness History of Present Illness got swollen after 2 bags of IVF running at 80cc hr So got lasix IVP x 1 Creat baseline 1,7, now 2 plus from 3.,2 NO complaints INR 2,.2 at perfect goal (post hip sx and mechanical AV valve) PLAN: PPLACE TMR Dc hernandez, bladder scan protocol HAs had the hernandez since hip sx dw JEFF tan and family at bedside' cont warf for life, goal 2-3 (AV valve) Vitals Vitals Vital Signs Date Time Temp Pulse Resp B/P (MAP) Pulse Ox O2 Delivery O2 Flow Rate FiO2 03/18/19 11:07 97.8 90 22 146/61 (89) 97 Nasal Cannula 4.0 97.8 Physical Exam General: mild distress Heart: Regular rate Lungs: Clear Abdomen: Normal bowel sounds Extremities: No clubbing, No cyanosis, Other (dry left hip dressing) Skin: No rashes, No breakdown, No significant lesion Labs LABS Laboratory Tests Test 03/18/19 06:30 White Blood Count 10.5 x10^3/uL (4.0-11.0) Red Blood Count 2.41 x10^6/uL (3.50-5.40) Hemoglobin 7.3 g/dL (12.0-15.5) Hematocrit 22.4 % (36.0-47.0) Mean Corpuscular Volume 93 fL (79-100) Mean Corpuscular Hemoglobin 30 pg (25-35) Mean Corpuscular Hemoglobin Concent 33 g/dL (31-37) Red Cell Distribution Width 16.1 % (11.5-14.5) Platelet Count 491 x10^3/uL (140-400) Neutrophils (%) (Auto) 79 % (31-73) Lymphocytes (%) (Auto) 11 % (24-48) Monocytes (%) (Auto) 9 % (0-9) Eosinophils (%) (Auto) 0 % (0-3) Basophils (%) (Auto) 1 % (0-3) Neutrophils # (Auto) 8.3 x10^3/uL (1.8-7.7) Lymphocytes # (Auto) 1.1 x10^3/uL (1.0-4.8) Monocytes # (Auto) 0.9 x10^3/uL (0.0-1.1) Eosinophils # (Auto) 0.0 x10^3/uL (0.0-0.7) Basophils # (Auto) 0.1 x10^3/uL (0.0-0.2) Prothrombin Time 24.5 SEC (11.7-14.0) Prothromb Time International Ratio 2.2 (0.8-1.1) Sodium Level 135 mmol/L (136-145) Potassium Level 4.9 mmol/L (3.5-5.1) Chloride Level 102 mmol/L (98-107) Carbon Dioxide Level 23 mmol/L (21-32) Anion Gap 10 (6-14) Blood Urea Nitrogen 38 mg/dL (7-20) Creatinine 2.2 mg/dL (0.6-1.0) Estimated GFR (Cockcroft-Gault) 21.0 BUN/Creatinine Ratio 17 (6-20) Glucose Level 116 mg/dL (70-99) Calcium Level 8.4 mg/dL (8.5-10.1) Total Bilirubin 0.6 mg/dL (0.2-1.0) Aspartate Amino Transf (AST/SGOT) 35 U/L (15-37) Alanine Aminotransferase (ALT/SGPT) 29 U/L (14-59) Alkaline Phosphatase 76 U/L (46-116) Total Protein 5.7 g/dL (6.4-8.2) Albumin 2.7 g/dL (3.4-5.0) Albumin/Globulin Ratio 0.9 (1.0-1.7) Review of Systems Review of Systems swollen feet and puffy IV arm, no soa, no cp, no abd issues, all else is neg Assessment and Plan Assessmemt and Plan Problems Medical Problems: (1) Acute on chronic renal failure Status: Acute (2) Coagulopathy Status: Acute (3) Hyponatremia Status: Acute (4) Lactic acidosis Status: Acute (5) Metabolic encephalopathy Status: Acute Comment Review of Relevant I have reviewed the following items carson (where applicable) has been applied. Labs Laboratory Tests Test 03/16/19 22:45 03/16/19 22:51 03/16/19 23:30 03/17/19 00:30 White Blood Count 9.2 x10^3/uL (4.0-11.0) Red Blood Count 2.40 x10^6/uL (3.50-5.40) Hemoglobin 7.4 g/dL (12.0-15.5) Hematocrit 22.2 % (36.0-47.0) Mean Corpuscular Volume 92 fL (79-100) Mean Corpuscular Hemoglobin 31 pg (25-35) Mean Corpuscular Hemoglobin Concent 33 g/dL (31-37) Red Cell Distribution Width 15.7 % (11.5-14.5) Platelet Count 493 x10^3/uL (140-400) Neutrophils (%) (Auto) 80 % (31-73) Lymphocytes (%) (Auto) 10 % (24-48) Monocytes (%) (Auto) 8 % (0-9) Eosinophils (%) (Auto) 1 % (0-3) Basophils (%) (Auto) 1 % (0-3) Neutrophils # (Auto) 7.4 x10^3/uL (1.8-7.7) Lymphocytes # (Auto) 0.9 x10^3/uL (1.0-4.8) Monocytes # (Auto) 0.7 x10^3/uL (0.0-1.1) Eosinophils # (Auto) 0.1 x10^3/uL (0.0-0.7) Basophils # (Auto) 0.1 x10^3/uL (0.0-0.2) Prothrombin Time 40.8 SEC (11.7-14.0) Prothromb Time International Ratio 4.2 (0.8-1.1) Sodium Level 124 mmol/L (136-145) Potassium Level 5.0 mmol/L (3.5-5.1) Chloride Level 93 mmol/L (98-107) Carbon Dioxide Level 25 mmol/L (21-32) Anion Gap 6 (6-14) Blood Urea Nitrogen 46 mg/dL (7-20) Creatinine 3.2 mg/dL (0.6-1.0) Estimated GFR (Cockcroft-Gault) 13.6 BUN/Creatinine Ratio 14 (6-20) Glucose Level 182 mg/dL (70-99) Lactic Acid Level 2.1 mmol/L (0.4-2.0) Calcium Level 8.2 mg/dL (8.5-10.1) Total Bilirubin 0.6 mg/dL (0.2-1.0) Aspartate Amino Transf (AST/SGOT) 35 U/L (15-37) Alanine Aminotransferase (ALT/SGPT) 30 U/L (14-59) Alkaline Phosphatase 72 U/L (46-116) Troponin I Quantitative < 0.017 ng/mL (0.000-0.055) [id number]-Type Natriuretic Peptide 6050 pg/mL (0-449) Total Protein 6.3 g/dL (6.4-8.2) Albumin 2.7 g/dL (3.4-5.0) Albumin/Globulin Ratio 0.8 (1.0-1.7) Glucose (Fingerstick) 185 mg/dL (70-99) O2 Saturation 91 % (92-99) Arterial Blood pH 7.39 (7.35-7.45) Arterial Blood pCO2 at Patient Temp 36 mmHg (35-46) Arterial Blood pO2 at Patient Temp 64 mmHg (65-108) Arterial Blood pO2 (Temp corrected) mmHg Arterial Blood HCO3 21 mmol/L (21-28) Arterial Blood Base Excess -4 mmol/L (-3-3) FiO2 28 Urine Collection Type U cath Urine Color Yellow Urine Clarity Clear Urine pH 5.0 Urine Specific [place] 1.010 Urine Protein Negative mg/dL (NEG-TRACE) Urine Glucose (UA) Negative mg/dL (NEG) Urine Ketones (Stick) Negative mg/dL (NEG) Urine Blood Negative (NEG) Urine Nitrite Negative (NEG) Urine Bilirubin Negative (NEG) Urine Urobilinogen Dipstick 0.2 mg/dL (0.2 mg/dL) Urine Leukocyte Esterase Negative (NEG) Urine RBC 0 /HPF (0-2) Urine WBC 0 /HPF (0-4) Urine Squamous Epithelial Cells Few /LPF Urine Amorphous Sediment Present /HPF Urine Bacteria 0 /HPF (0-FEW) Urine Mucus Slight /LPF Test 03/17/19 02:00 03/17/19 09:04 03/18/19 06:30 Lactic Acid Level 0.7 mmol/L (0.4-2.0) Prothrombin Time 46.9 SEC (11.7-14.0) 24.5 SEC (11.7-14.0) Prothromb Time International Ratio 5.0 (0.8-1.1) 2.2 (0.8-1.1) White Blood Count 10.5 x10^3/uL (4.0-11.0) Red Blood Count 2.41 x10^6/uL (3.50-5.40) Hemoglobin 7.3 g/dL (12.0-15.5) Hematocrit 22.4 % (36.0-47.0) Mean Corpuscular Volume 93 fL (79-100) Mean Corpuscular Hemoglobin 30 pg (25-35) Mean Corpuscular Hemoglobin Concent 33 g/dL (31-37) Red Cell Distribution Width 16.1 % (11.5-14.5) Platelet Count 491 x10^3/uL (140-400) Neutrophils (%) (Auto) 79 % (31-73) Lymphocytes (%) (Auto) 11 % (24-48) Monocytes (%) (Auto) 9 % (0-9) Eosinophils (%) (Auto) 0 % (0-3) Basophils (%) (Auto) 1 % (0-3) Neutrophils # (Auto) 8.3 x10^3/uL (1.8-7.7) Lymphocytes # (Auto) 1.1 x10^3/uL (1.0-4.8) Monocytes # (Auto) 0.9 x10^3/uL (0.0-1.1) Eosinophils # (Auto) 0.0 x10^3/uL (0.0-0.7) Basophils # (Auto) 0.1 x10^3/uL (0.0-0.2) Sodium Level 135 mmol/L (136-145) Potassium Level 4.9 mmol/L (3.5-5.1) Chloride Level 102 mmol/L (98-107) Carbon Dioxide Level 23 mmol/L (21-32) Anion Gap 10 (6-14) Blood Urea Nitrogen 38 mg/dL (7-20) Creatinine 2.2 mg/dL (0.6-1.0) Estimated GFR (Cockcroft-Gault) 21.0 BUN/Creatinine Ratio 17 (6-20) Glucose Level 116 mg/dL (70-99) Calcium Level 8.4 mg/dL (8.5-10.1) Total Bilirubin 0.6 mg/dL (0.2-1.0) Aspartate Amino Transf (AST/SGOT) 35 U/L (15-37) Alanine Aminotransferase (ALT/SGPT) 29 U/L (14-59) Alkaline Phosphatase 76 U/L (46-116) Total Protein 5.7 g/dL (6.4-8.2) Albumin 2.7 g/dL (3.4-5.0) Albumin/Globulin Ratio 0.9 (1.0-1.7) Laboratory Tests Test 03/18/19 06:30 White Blood Count 10.5 x10^3/uL (4.0-11.0) Red Blood Count 2.41 x10^6/uL (3.50-5.40) Hemoglobin 7.3 g/dL (12.0-15.5) Hematocrit 22.4 % (36.0-47.0) Mean Corpuscular Volume 93 fL (79-100) Mean Corpuscular Hemoglobin 30 pg (25-35) Mean Corpuscular Hemoglobin Concent 33 g/dL (31-37) Red Cell Distribution Width 16.1 % (11.5-14.5) Platelet Count 491 x10^3/uL (140-400) Neutrophils (%) (Auto) 79 % (31-73) Lymphocytes (%) (Auto) 11 % (24-48) Monocytes (%) (Auto) 9 % (0-9) Eosinophils (%) (Auto) 0 % (0-3) Basophils (%) (Auto) 1 % (0-3) Neutrophils # (Auto) 8.3 x10^3/uL (1.8-7.7) Lymphocytes # (Auto) 1.1 x10^3/uL (1.0-4.8) Monocytes # (Auto) 0.9 x10^3/uL (0.0-1.1) Eosinophils # (Auto) 0.0 x10^3/uL (0.0-0.7) Basophils # (Auto) 0.1 x10^3/uL (0.0-0.2) Prothrombin Time 24.5 SEC (11.7-14.0) Prothromb Time International Ratio 2.2 (0.8-1.1) Sodium Level 135 mmol/L (136-145) Potassium Level 4.9 mmol/L (3.5-5.1) Chloride Level 102 mmol/L (98-107) Carbon Dioxide Level 23 mmol/L (21-32) Anion Gap 10 (6-14) Blood Urea Nitrogen 38 mg/dL (7-20) Creatinine 2.2 mg/dL (0.6-1.0) Estimated GFR (Cockcroft-Gault) 21.0 BUN/Creatinine Ratio 17 (6-20) Glucose Level 116 mg/dL (70-99) Calcium Level 8.4 mg/dL (8.5-10.1) Total Bilirubin 0.6 mg/dL (0.2-1.0) Aspartate Amino Transf (AST/SGOT) 35 U/L (15-37) Alanine Aminotransferase (ALT/SGPT) 29 U/L (14-59) Alkaline Phosphatase 76 U/L (46-116) Total Protein 5.7 g/dL (6.4-8.2) Albumin 2.7 g/dL (3.4-5.0) Albumin/Globulin Ratio 0.9 (1.0-1.7) Medications Current Medications Sodium Chloride 1,000 ml @ 1,000 mls/hr 1X ONCE IV Last administered on 03/16/19at 22:58; Start 03/16/19 at 23:00; Stop 03/16/19 at 23:59; Status DC Ondansetron HCl (Zofran) 4 mg PRN Q8HRS PRN IV NAUSEA/VOMITING; Start 03/17/19 at 01:00; Stop 03/18/19 at 00:59; Status DC Sodium Chloride 1,000 ml @ 75 mls/hr 1X ONCE IV ; Start 03/17/19 at 01:00; Stop 03/17/19 at 14:19; Status DC Acetaminophen (Tylenol) 500 mg PRN Q6HRS PRN PO MILD PAIN / TEMP; Start 03/17/19 at 08:45 Acetaminophen/ Codeine Phosphate (Tylenol #3) 1 tab PRN Q6HRS PRN PO MODERATE PAIN; Start 03/17/19 at 08:45 Ondansetron HCl (Zofran) 4 mg PRN Q6HRS PRN IVP NAUSEA/VOMITING; Start 03/17/19 at 08:45 Acetaminophen (Tylenol) 1,000 mg TID PRN PRN PO PAIN; Start 03/17/19 at 08:45; Status Cancel Allopurinol (Zyloprim) 300 mg DAILY PO Last administered on 03/18/19at 08:25; Start 03/17/19 at 09:00 Amlodipine Besylate (Norvasc) 5 mg DAILY PO Last administered on 03/18/19at 08:27; Start 03/17/19 at 09:00 Cyclobenzaprine HCl (Flexeril) 10 mg PRN Q8HRS PRN PO MUSCLE SPASMS; Start 03/17/19 at 08:45 Vitamin B Complex/ Vitamin C (Renate-Vonda) 1 tab DAILY PO Last administered on 03/18/19at 08:26; Start 03/17/19 at 09:00 Furosemide (Lasix) 20 mg DAILY PO ; Start 03/17/19 at 09:00; Stop 03/17/19 at 08:41; Status DC Acetaminophen/ Hydrocodone Bitart (Lortab 5/325) 1 tab PRN Q4HRS PRN PO SEVERE PAIN Last administered on 03/17/19at 16:47; Start 03/17/19 at 08:45 Isosorbide Mononitrate (Imdur) 30 mg DAILY PO Last administered on 03/18/19at 08:27; Start 03/17/19 at 09:00 Lisinopril (Prinivil) 5 mg DAILY PO Last administered on 03/18/19at 08:26; Start 03/17/19 at 09:00 Propafenone HCl (Rythmol) 150 mg TID PO Last administered on 03/17/19at 14:49; Start 03/17/19 at 09:00; Status Hold Tizanidine HCl (Zanaflex) 4 mg PRN TID PRN PO spasms; Start 03/17/19 at 08:45; Status Cancel Pantoprazole Sodium (Protonix) 40 mg DAILYAC PO ; Start 03/18/19 at 07:30 Sodium Chloride 1,000 ml @ 80 mls/hr [id number] IV Last administered on 03/17/19at 20:37; Start 03/17/19 at 08:45 Phytonadione (Vitamin K Ampule) 5 mg 1X ONCE SQ Last administered on 03/17/19at 10:15; Start 03/17/19 at 10:15; Stop 03/17/19 at 10:16; Status DC Albuterol Sulfate (Ventolin Neb Soln) 2.5 mg PRN Q4HRS PRN NEB SHORTNESS OF BREATH Last administered on 03/18/19at 10:52; Start 03/17/19 at 22:15 Furosemide (Lasix) 40 mg 1X ONCE IVP Last administered on 03/17/19at 22:32; Start 03/17/19 at 22:30; Stop 03/17/19 at 22:31; Status DC Warfarin Sodium (Coumadin Per Pharmacy) 1 each PRN DAILY PRN MC SEE COMMENTS Last administered on 03/18/19at 09:57; Start 03/18/19 at 09:00 Warfarin Sodium (Coumadin) 2 mg 1X WARF ONCE PO ; Start 03/18/19 at 16:00; S top 03/18/19 at 16:01 Active Scripts Active Hydrocodone-Apap 5-325 (Hydrocodone Bit/Acetaminophen) 1 Tab Tablet 1 Tab PO PRN Q4HRS PRN Cyclobenzaprine Hcl 10 Mg Tablet 10 Mg PO PRN Q8HRS PRN Reported Tizanidine Hcl 4 Mg Tablet 4 Mg PO Q8HRS PRN Tylenol Extra Strength (Acetaminophen) 500 Mg Tablet 1,000 Mg PO TID PRN PRN Amlodipine Besylate 5 Mg Tablet 5 Mg PO DAILY 30 Days Furosemide 20 Mg Tablet 20 Mg PO DAILY Nephro-Vonda Tablet (Folic Acid/Vitamin B Comp W-C) 0.8 Mg Tablet 1 Tab PO DAILY Isosorbide Mononitrate Er (Isosorbide Mononitrate) 30 Mg Tab.er.24h 1 Tab PO DAILY Lisinopril 5 Mg Tablet 1 Tab PO DAILY Omeprazole 20 Mg Capsule.dr 1 Cap PO DAILY Metoprolol Succinate ( Xl ) (Metoprolol Succinate) 25 Mg Tab.er.24h 1 Tab PO DAILY Warfarin Sodium 3 Mg Tablet 1 Tab PO DAILY Allopurinol 300 Mg Tablet 1 Tab PO DAILY Propafenone Hcl 150 Mg Tablet 150 Mg PO TID Vitals/I & O Vital Sign - Last 24 Hours 03/17/19 03/17/19 03/17/19 03/17/19 12:00 12:25 14:00 14:49 Temp 97.1 97.1 Pulse 61 65 Resp 22 B/P (MAP) 136/57 (83) 134/56 Pulse Ox 92 O2 Delivery Nasal Cannula Nasal Cannula Nasal Cannula O2 Flow Rate 2.0 2.0 2.0 03/17/19 03/17/19 03/17/19 03/17/19 15:00 16:47 19:00 19:59 Temp 97.1 97.9 97.1 97.9 Pulse 63 55 Resp 22 20 24 B/P (MAP) 135/56 (82) 125/53 (77) Pulse Ox 90 92 91 O2 Delivery Nasal Cannula Nasal Cannula Nasal Cannula Nasal Cannula O2 Flow Rate 2.0 2.0 2.0 3.0 03/17/19 03/17/19 03/18/19 03/18/19 22:24 23:00 03:00 07:00 Temp 98.1 98.1 97.5 98.1 98.1 97.5 Pulse 73 81 85 Resp 20 24 22 B/P (MAP) 136/61 (86) 132/58 (82) 147/65 (92) Pulse Ox 95 96 94 98 O2 Delivery Nasal Cannula Nasal Cannula Nasal Cannula Nasal Cannula O2 Flow Rate 4.0 2.0 2.0 4.0 03/18/19 03/18/19 03/18/19 03/18/19 08:00 08:17 08:26 08:27 Pulse 84 85 B/P (MAP) 147/65 147/65 Pulse Ox 98 O2 Delivery Nasal Cannula Nasal Cannula O2 Flow Rate 3.0 3.0 03/18/19 03/18/19 03/18/19 08:27 10:53 11:07 Temp 97.8 97.8 Pulse 85 90 Resp 22 B/P (MAP) 147/65 146/61 (89) Pulse Ox 95 97 O2 Delivery Nasal Cannula Nasal Cannula O2 Flow Rate 3.0 4.0 Intake and Output 03/17/19 03/17/19 03/18/19 15:00 23:00 07:00 Intake Total 300 ml 200 ml Output Total 380 ml 1050 ml 1550 ml Balance -380 ml -750 ml -1350 ml REBEKAH AKINS MD Mar 18, 2019 11:52
--- NOTE | 2019-03-18 14:01 | PDOC ---
PROGRESS NOTES Subjective Subjective Patient seen and examined Objective Objective Vital Signs Date Time Temp Pulse Resp B/P (MAP) Pulse Ox O2 Delivery O2 Flow Rate FiO2 03/18/19 11:07 97.8 90 22 146/61 (89) 97 Nasal Cannula 4.0 97.8 Intake and Output 03/18/19 07:00 Intake Total 500 ml Output Total 2980 ml Balance -2480 ml Intake Oral 500 ml Output Urine Total 2980 ml Physical Exam Abdomen: Normal bowel sounds Heart: Regular rate General: mild distress Lungs: Other (slightly decreased breath sounds) Assessment Assessment Problems Medical Problems: (1) Acute on chronic renal failure Status: Acute (2) Coagulopathy Status: Acute (3) Hyponatremia Status: Acute (4) Lactic acidosis Status: Acute (5) Metabolic encephalopathy Status: Acute 1. Metabolic encephalopathy. The patient is improving today. 2. Mechanical aortic valve. Echocardiogram from 12/22/18 shows normal functioning of the valve and normal ejection fraction. INR has improved to 2.2. Resume coumadin. 3. History of paroxysmal atrial fibrillation. Bradycardia improved. Continue present treatment. 4. Acute on chronic renal failure. Creatinine improved to 2.2. Fluids and monitoring of lab. 5. Anemia. Hgb of 7.3. Continuing to monitor. 6. Elevated BNP at 6050. Troponin normal. Treatment as above with close monitoring. Comment Review of Relevant I have reviewed the following items carson (where applicable) has been applied. Labs Laboratory Tests Test 03/16/19 22:45 03/16/19 22:51 03/16/19 23:30 03/17/19 00:30 White Blood Count 9.2 x10^3/uL (4.0-11.0) Red Blood Count 2.40 x10^6/uL (3.50-5.40) Hemoglobin 7.4 g/dL (12.0-15.5) Hematocrit 22.2 % (36.0-47.0) Mean Corpuscular Volume 92 fL (79-100) Mean Corpuscular Hemoglobin 31 pg (25-35) Mean Corpuscular Hemoglobin Concent 33 g/dL (31-37) Red Cell Distribution Width 15.7 % (11.5-14.5) Platelet Count 493 x10^3/uL (140-400) Neutrophils (%) (Auto) 80 % (31-73) Lymphocytes (%) (Auto) 10 % (24-48) Monocytes (%) (Auto) 8 % (0-9) Eosinophils (%) (Auto) 1 % (0-3) Basophils (%) (Auto) 1 % (0-3) Neutrophils # (Auto) 7.4 x10^3/uL (1.8-7.7) Lymphocytes # (Auto) 0.9 x10^3/uL (1.0-4.8) Monocytes # (Auto) 0.7 x10^3/uL (0.0-1.1) Eosinophils # (Auto) 0.1 x10^3/uL (0.0-0.7) Basophils # (Auto) 0.1 x10^3/uL (0.0-0.2) Prothrombin Time 40.8 SEC (11.7-14.0) Prothromb Time International Ratio 4.2 (0.8-1.1) Sodium Level 124 mmol/L (136-145) Potassium Level 5.0 mmol/L (3.5-5.1) Chloride Level 93 mmol/L (98-107) Carbon Dioxide Level 25 mmol/L (21-32) Anion Gap 6 (6-14) Blood Urea Nitrogen 46 mg/dL (7-20) Creatinine 3.2 mg/dL (0.6-1.0) Estimated GFR (Cockcroft-Gault) 13.6 BUN/Creatinine Ratio 14 (6-20) Glucose Level 182 mg/dL (70-99) Lactic Acid Level 2.1 mmol/L (0.4-2.0) Calcium Level 8.2 mg/dL (8.5-10.1) Total Bilirubin 0.6 mg/dL (0.2-1.0) Aspartate Amino Transf (AST/SGOT) 35 U/L (15-37) Alanine Aminotransferase (ALT/SGPT) 30 U/L (14-59) Alkaline Phosphatase 72 U/L (46-116) Troponin I Quantitative < 0.017 ng/mL (0.000-0.055) [id number]-Dwa-[id number]-Type Natriuretic Peptide 6050 pg/mL (0-449) Total Protein 6.3 g/dL (6.4-8.2) Albumin 2.7 g/dL (3.4-5.0) Albumin/Globulin Ratio 0.8 (1.0-1.7) Glucose (Fingerstick) 185 mg/dL (70-99) O2 Saturation 91 % (92-99) Arterial Blood pH 7.39 (7.35-7.45) Arterial Blood pCO2 at Patient Temp 36 mmHg (35-46) Arterial Blood pO2 at Patient Temp 64 mmHg (65-108) Arterial Blood pO2 (Temp corrected) mmHg Arterial Blood HCO3 21 mmol/L (21-28) Arterial Blood Base Excess -4 mmol/L (-3-3) FiO2 28 Urine Collection Type U cath Urine Color Yellow Urine Clarity Clear Urine pH 5.0 Urine Specific [place] 1.010 Urine Protein Negative mg/dL (NEG-TRACE) Urine Glucose (UA) Negative mg/dL (NEG) Urine Ketones (Stick) Negative mg/dL (NEG) Urine Blood Negative (NEG) Urine Nitrite Negative (NEG) Urine Bilirubin Negative (NEG) Urine Urobilinogen Dipstick 0.2 mg/dL (0.2 mg/dL) Urine Leukocyte Esterase Negative (NEG) Urine RBC 0 /HPF (0-2) Urine WBC 0 /HPF (0-4) Urine Squamous Epithelial Cells Few /LPF Urine Amorphous Sediment Present /HPF Urine Bacteria 0 /HPF (0-FEW) Urine Mucus Slight /LPF Test 03/17/19 02:00 03/17/19 09:04 03/18/19 06:30 Lactic Acid Level 0.7 mmol/L (0.4-2.0) Prothrombin Time 46.9 SEC (11.7-14.0) 24.5 SEC (11.7-14.0) Prothromb Time International Ratio 5.0 (0.8-1.1) 2.2 (0.8-1.1) White Blood Count 10.5 x10^3/uL (4.0-11.0) Red Blood Count 2.41 x10^6/uL (3.50-5.40) Hemoglobin 7.3 g/dL (12.0-15.5) Hematocrit 22.4 % (36.0-47.0) Mean Corpuscular Volume 93 fL (79-100) Mean Corpuscular Hemoglobin 30 pg (25-35) Mean Corpuscular Hemoglobin Concent 33 g/dL (31-37) Red Cell Distribution Width 16.1 % (11.5-14.5) Platelet Count 491 x10^3/uL (140-400) Neutrophils (%) (Auto) 79 % (31-73) Lymphocytes (%) (Auto) 11 % (24-48) Monocytes (%) (Auto) 9 % (0-9) Eosinophils (%) (Auto) 0 % (0-3) Basophils (%) (Auto) 1 % (0-3) Neutrophils # (Auto) 8.3 x10^3/uL (1.8-7.7) Lymphocytes # (Auto) 1.1 x10^3/uL (1.0-4.8) Monocytes # (Auto) 0.9 x10^3/uL (0.0-1.1) Eosinophils # (Auto) 0.0 x10^3/uL (0.0-0.7) Basophils # (Auto) 0.1 x10^3/uL (0.0-0.2) Sodium Level 135 mmol/L (136-145) Potassium Level 4.9 mmol/L (3.5-5.1) Chloride Level 102 mmol/L (98-107) Carbon Dioxide Level 23 mmol/L (21-32) Anion Gap 10 (6-14) Blood Urea Nitrogen 38 mg/dL (7-20) Creatinine 2.2 mg/dL (0.6-1.0) Estimated GFR (Cockcroft-Gault) 21.0 BUN/Creatinine Ratio 17 (6-20) Glucose Level 116 mg/dL (70-99) Calcium Level 8.4 mg/dL (8.5-10.1) Total Bilirubin 0.6 mg/dL (0.2-1.0) Aspartate Amino Transf (AST/SGOT) 35 U/L (15-37) Alanine Aminotransferase (ALT/SGPT) 29 U/L (14-59) Alkaline Phosphatase 76 U/L (46-116) Total Protein 5.7 g/dL (6.4-8.2) Albumin 2.7 g/dL (3.4-5.0) Albumin/Globulin Ratio 0.9 (1.0-1.7) Laboratory Tests Test 03/18/19 06:30 White Blood Count 10.5 x10^3/uL (4.0-11.0) Red Blood Count 2.41 x10^6/uL (3.50-5.40) Hemoglobin 7.3 g/dL (12.0-15.5) Hematocrit 22.4 % (36.0-47.0) Mean Corpuscular Volume 93 fL (79-100) Mean Corpuscular Hemoglobin 30 pg (25-35) Mean Corpuscular Hemoglobin Concent 33 g/dL (31-37) Red Cell Distribution Width 16.1 % (11.5-14.5) Platelet Count 491 x10^3/uL (140-400) Neutrophils (%) (Auto) 79 % (31-73) Lymphocytes (%) (Auto) 11 % (24-48) Monocytes (%) (Auto) 9 % (0-9) Eosinophils (%) (Auto) 0 % (0-3) Basophils (%) (Auto) 1 % (0-3) Neutrophils # (Auto) 8.3 x10^3/uL (1.8-7.7) Lymphocytes # (Auto) 1.1 x10^3/uL (1.0-4.8) Monocytes # (Auto) 0.9 x10^3/uL (0.0-1.1) Eosinophils # (Auto) 0.0 x10^3/uL (0.0-0.7) Basophils # (Auto) 0.1 x10^3/uL (0.0-0.2) Prothrombin Time 24.5 SEC (11.7-14.0) Prothromb Time International Ratio 2.2 (0.8-1.1) Sodium Level 135 mmol/L (136-145) Potassium Level 4.9 mmol/L (3.5-5.1) Chloride Level 102 mmol/L (98-107) Carbon Dioxide Level 23 mmol/L (21-32) Anion Gap 10 (6-14) Blood Urea Nitrogen 38 mg/dL (7-20) Creatinine 2.2 mg/dL (0.6-1.0) Estimated GFR (Cockcroft-Gault) 21.0 BUN/Creatinine Ratio 17 (6-20) Glucose Level 116 mg/dL (70-99) Calcium Level 8.4 mg/dL (8.5-10.1) Total Bilirubin 0.6 mg/dL (0.2-1.0) Aspartate Amino Transf (AST/SGOT) 35 U/L (15-37) Alanine Aminotransferase (ALT/SGPT) 29 U/L (14-59) Alkaline Phosphatase 76 U/L (46-116) Total Protein 5.7 g/dL (6.4-8.2) Albumin 2.7 g/dL (3.4-5.0) Albumin/Globulin Ratio 0.9 (1.0-1.7) Medications Current Medications Sodium Chloride 1,000 ml @ 1,000 mls/hr 1X ONCE IV Last administered on 03/16/19at 22:58; Start 03/16/19 at 23:00; Stop 03/16/19 at 23:59; Status DC Ondansetron HCl (Zofran) 4 mg PRN Q8HRS PRN IV NAUSEA/VOMITING; Start 03/17/19 at 01:00; Stop 03/18/19 at 00:59; Status DC Sodium Chloride 1,000 ml @ 75 mls/hr 1X ONCE IV ; Start 03/17/19 at 01:00; Stop 03/17/19 at 14:19; Status DC Acetaminophen (Tylenol) 500 mg PRN Q6HRS PRN PO MILD PAIN / TEMP; Start 03/17/19 at 08:45 Acetaminophen/ Codeine Phosphate (Tylenol #3) 1 tab PRN Q6HRS PRN PO MODERATE PAIN; Start 03/17/19 at 08:45 Ondansetron HCl (Zofran) 4 mg PRN Q6HRS PRN IVP NAUSEA/VOMITING; Start 03/17/19 at 08:45 Acetaminophen (Tylenol) 1,000 mg TID PRN PRN PO PAIN; Start 03/17/19 at 08:45; Status Cancel Allopurinol (Zyloprim) 300 mg DAILY PO Last administered on 03/18/19at 08:25; Start 03/17/19 at 09:00 Amlodipine Besylate (Norvasc) 5 mg DAILY PO Last administered on 03/18/19at 08:27; Start 03/17/19 at 09:00 Cyclobenzaprine HCl (Flexeril) 10 mg PRN Q8HRS PRN PO MUSCLE SPASMS; Start 03/17/19 at 08:45 Vitamin B Complex/ Vitamin C (Renate-Vonda) 1 tab DAILY PO Last administered on 03/18/19at 08:26; Start 03/17/19 at 09:00 Furosemide (Lasix) 20 mg DAILY PO ; Start 03/17/19 at 09:00; Stop 03/17/19 at 08:41; Status DC Acetaminophen/ Hydrocodone Bitart (Lortab 5/325) 1 tab PRN Q4HRS PRN PO SEVERE PAIN Last administered on 03/17/19 16:47; Start 03/17/19 at 08:45 Isosorbide Mononitrate (Imdur) 30 mg DAILY PO Last administered on 03/18/19 08:27; Start 03/17/19 at 09:00 Lisinopril (Prinivil) 5 mg DAILY PO Last administered on 03/18/19 08:26; Start 03/17/19 at 09:00 Propafenone HCl (Rythmol) 150 mg TID PO Last administered on 03/17/19at 14:49; Start 03/17/19 at 09:00; Status Hold Tizanidine HCl (Zanaflex) 4 mg PRN TID PRN PO spasms; Start 03/17/19 at 08:45; Status Cancel Pantoprazole Sodium (Protonix) 40 mg DAILYAC PO ; Start 03/18/19 at 07:30 Sodium Chloride 1,000 ml @ 80 mls/hr [id number] IV Last administered on 03/17/19at 20:37; Start 03/17/19 at 08:45; Stop 03/18/19 at 11:50; Status DC Phytonadione (Vitamin K Ampule) 5 mg 1X ONCE SQ Last administered on 03/17/19at 10:15; Start 03/17/19 at 10:15; Stop 03/17/19 at 10:16; Status DC Albuterol Sulfate (Ventolin Neb Soln) 2.5 mg PRN Q4HRS PRN NEB SHORTNESS OF BREATH Last administered on 03/18/19 10:52; Start 03/17/19 at 22:15 Furosemide (Lasix) 40 mg 1X ONCE IVP Last administered on 03/17/19at 22:32; Start 03/17/19 at 22:30; Stop 03/17/19 at 22:31; Status DC Warfarin Sodium (Coumadin Per Pharmacy) 1 each PRN DAILY PRN MC SEE COMMENTS Last administered on 12/29/19at 09:57; Start 03/18/19 at 09:00 Warfarin Sodium (Coumadin) 2 mg 1X WARF ONCE PO ; Start 03/18/19 at 16:00; Stop 03/18/19 at 16:01 Active Scripts Active Hydrocodone-Apap 5-325 (Hydrocodone Bit/Acetaminophen) 1 Tab Tablet 1 Tab PO PRN Q4HRS PRN Cyclobenzaprine Hcl 10 Mg Tablet 10 Mg PO PRN Q8HRS PRN Reported Tizanidine Hcl 4 Mg Tablet 4 Mg PO Q8HRS PRN Tylenol Extra Strength (Acetaminophen) 500 Mg Tablet 1,000 Mg PO TID PRN PRN Amlodipine Besylate 5 Mg Tablet 5 Mg PO DAILY 30 Days Furosemide 20 Mg Tablet 20 Mg PO DAILY Nephro-Vonda Tablet (Folic Acid/Vitamin B Comp W-C) 0.8 Mg Tablet 1 Tab PO DAILY Isosorbide Mononitrate Er (Isosorbide Mononitrate) 30 Mg Tab.er.24h 1 Tab PO DAILY Lisinopril 5 Mg Tablet 1 Tab PO DAILY Omeprazole 20 Mg Capsule.dr 1 Cap PO DAILY Metoprolol Succinate ( Xl ) (Metoprolol Succinate) 25 Mg Tab.er.24h 1 Tab PO DAILY Warfarin Sodium 3 Mg Tablet 1 Tab PO DAILY Allopurinol 300 Mg Tablet 1 Tab PO DAILY Propafenone Hcl 150 Mg Tablet 150 Mg PO TID Vitals/I & O Vital Sign - Last 24 Hours 03/17/19 03/17/19 03/17/19 03/17/19 14:00 14:49 15:00 16:47 Temp 97.1 97.1 Pulse 65 63 Resp 22 20 B/P (MAP) 134/56 135/56 (82) Pulse Ox 90 92 O2 Delivery Nasal Cannula Nasal Cannula Nasal Cannula O2 Flow Rate 2.0 2.0 2.0 03/17/19 03/17/19 03/17/19 03/17/19 19:00 19:59 22:24 23:00 Temp 97.9 98.1 97.9 98.1 Pulse 55 73 Resp 24 20 B/P (MAP) 125/53 (77) 136/61 (86) Pulse Ox 91 95 96 O2 Delivery Nasal Cannula Nasal Cannula Nasal Cannula Nasal Cannula O2 Flow Rate 2.0 3.0 4.0 2.0 03/18/19 03/18/19 03/18/1919 03:00 07:00 08:00 08:17 Temp 98.1 97.5 98.1 97.5 Pulse 81 85 Resp 24 22 B/P (MAP) 132/58 (82) 147/65 (92) Pulse Ox 94 98 98 O2 Delivery Nasal Cannula Nasal Cannula Nasal Cannula Nasal Cannula O2 Flow Rate 2.0 4.0 3.0 3.0 03/18/19 03/18/19 03/18/19 03/18/19 08:26 08:27 08:27 10:53 Pulse 84 85 85 B/P (MAP) 147/65 147/65 147/65 Pulse Ox 95 O2 Delivery Nasal Cannula O2 Flow Rate 3.0 03/18/19 11:07 Temp 97.8 97.8 Pulse 90 Resp 22 B/P (MAP) 146/61 (89) Pulse Ox 97 O2 Delivery Nasal Cannula O2 Flow Rate 4.0 Intake and Output 03/17/19 03/17/19 03/18/19 15:00 23:00 07:00 Intake Total 300 ml 200 ml Output Total 380 ml 1050 ml 1550 ml Balance -380 ml -750 ml -1350 ml MARISSA ROBERTO MD Mar 18, 2019 14:01
[2019-03-18] MEDS: CYCLOBENZAPRINE 10 MG TABLET. PO PRN (14:07)
[2019-03-18 15:00] VITALS: BP 130/48
[2019-03-18] MEDS ORDERED: WARFARIN 2 MG TABLET. PO ONE (16:00)
[2019-03-18] MEDS: HYDROcodone/APAP 5/325MG 1 TAB TABLET PO PRN ×2 (16:35→21:29)
--- NOTE | 2019-03-18 17:00 | NUR ---
Assumed care of patient. Patient transferred to . Agree with previous infertility medical assistant. Nails removed per protocol. Will continue to monitor and care for according to POC.
[2019-03-18 19:00] VITALS: BP 123/40
--- NOTE | 2019-03-18 19:12 | NUR ---
Patient's granddaughter would like for patient to go [facility]. Patient's granddaughter Frances would like to be called at [phone].
[2019-03-18 23:00] VITALS: BP 143/43
[2019-03-19 03:08] VITALS: BP 128/46
[2019-03-19 06:00] LABS: CALCIUM 8.5 mg/dL (8.5-10.1); CREATININE 1.8 mg/dL (0.6-1.0); GFR 26.5; POTASSIUM 4.5 mmol/L (3.5-5.1)
[2019-03-19] MEDS: ALBUTEROL SULFATE 2.5 MG/3 ML NEBU. NEB PRN ×4 (06:19→20:19)
[2019-03-19 07:00] VITALS: BP 147/45
[2019-03-19 07:00] LABS: PROTHROMBIN TIME PATIENT 18.7 SEC (11.7-14.0)
[2019-03-19] MEDS: amLODIPine BESYLATE 5 MG TABLET PO SCH (08:57)
[2019-03-19] MEDS: FOLIC/VIT B COMP W-C (RENAL) TABLET. PO SCH (08:57)
[2019-03-19] MEDS: PANTOPRAZOLE 40 MG TABLET.DR. PO SCH (08:57)
[2019-03-19] MEDS: LISINOPRIL 5 MG TABLET. PO SCH (08:57)
[2019-03-19] MEDS: ALLOPURINOL 300 MG TABLET. PO SCH (08:57)
[2019-03-19] MEDS: ISOSORBIDE MONONITRATE ER 30 MG TAB.ER.24H PO SCH (08:59)
--- NOTE | 2019-03-19 09:39 | EKG ---
[facility] [address] [place] [address] Test Date: 2019-03-16 Test Time: 22:50:04 Pat Name: ERROL HODGE Department: Room: [facility] Gender: F Deputy Sheriff/Investigator: : [id number] Requested By: SUDHA ERVIN Order Number: [id number] Reading MD: Measurements Intervals [place] Rate: 42 P: 125 CA: 186 QRS: -24 QRSD: 154 T: 124 QT: 542 QTc: 452 Interpretive Statements SINUS BRADYCARDIA LEFTWARD AXIS NON SPECIFIC INTRAVENTRICULAR BLOCK QRS(T) CONTOUR ABNORMALITY CONSIDER INFERIOR MYOCARDIAL DAMAGE ABNORMAL ECG RI6.01 No previous ECG available for comparison
[2019-03-19 11:00] VITALS: BP 131/43
--- NOTE | 2019-03-19 11:00 | NUR ---
Pt's PVR >890 mL. Verbal orders received from Dr. Richards to place Nails catheter. Will place and continue to monitor.
--- NOTE | 2019-03-19 11:37 | PDOC ---
[facility] [facility] PROGRESS NOTE Chief Complaint Chief Complaint Metabolic encephalopathy, resolving Paroxysmal A-fib Mechanical aortic valve Post-op day 11 of left hip surgery HTN Aortic stenosis Chronic Renal Insufficiency History of Present Illness History of Present Illness 03/19/19 Pt seen and examined Pt was pleasantly confused DW RN Reviewed pt's chart Vitals/I&O Vitals/I&O: Vital Signs Date Time Temp Pulse Resp B/P (MAP) Pulse Ox O2 Delivery O2 Flow Rate FiO2 03/19/19 11:20 100 Nasal Cannula 2.0 03/19/19 08:59 95 147/45 03/19/19 07:00 98.4 18 98.4 I & O 03/18/19 03/18/19 03/19/19 15:00 23:00 07:00 Output Total 750 ml 0 ml Balance -750 ml 0 ml Physical Exam General: Alert, Cooperative, mild distress Heart: Regular rate, Normal S1, Normal S2 Lungs: Clear Abdomen: Normal bowel sounds Extremities: No clubbing, No cyanosis, Other (dry left hip dressing) Skin: No rashes, No breakdown, No significant lesion Labs Labs: Laboratory Tests Test 03/19/19 03:36 Prothrombin Time 18.7 SEC (11.7-14.0) Prothromb Time International Ratio 1.6 (0.8-1.1) Sodium Level 139 mmol/L (136-145) Potassium Level 4.5 mmol/L (3.5-5.1) Chloride Level 104 mmol/L (98-107) Carbon Dioxide Level 23 mmol/L (21-32) Anion Gap 12 (6-14) Blood Urea Nitrogen 30 mg/dL (7-20) Creatinine 1.8 mg/dL (0.6-1.0) Estimated GFR (Cockcroft-Gault) 26.5 Glucose Level 100 mg/dL (70-99) Calcium Level 8.5 mg/dL (8.5-10.1) Review of Systems Review of Systems: No c/o headache No c/o CP Assessment and Plan Assessmemt and Plan Problems Medical Problems: (1) Acute on chronic renal failure Status: Acute (2) Coagulopathy Status: Acute (3) Hyponatremia Status: Acute (4) Lactic acidosis Status: Acute (5) Metabolic encephalopathy Status: Acute Assessment Metabolic encephalopathy, resolving Paroxysmal A-fib Mechanical aortic valve Post-op day 11 of left hip surgery HTN Aortic stenosis Chronic Renal Insufficiency Plan Labs DVT Prophylaxis PT/OT Home meds Full code Appreciate subspecialist input SNU in am if accepted Comment Review of Relevant I have reviewed the following items carson (where applicable) has been applied. Medications: Current Medications Medications (Trade) Dose Ordered Sig/Hiram Route PRN Reason Start Time Stop Time Status Last Admin Dose Admin Warfarin Sodium (Coumadin) 2 mg 1X WARF ONCE PO 03/18/19 16:00 03/18/19 16:01 DC 03/18/19 16:35 KEZIA SON III DO Mar 19, 2019 11:36
--- NOTE | 2019-03-19 11:47 | NUR ---
CHARLA following. Chart reviewed, discussed with RN. CHARLA spoke with pt's granddaughter, Frances, they would like pt to go somewhere different. Pt's granddaughter is looking at [facility] and [facility], she will have a decision by 1500 today. CHARLA will continue to follow. Addendum: 03/19/19 at 1313 by DONI DUNHAM Pt's granddaughter contacted CHARLA, would like referral sent to [facility]. CHARLA faxed referral to [facility], awaiting acceptance decision. CHARLA will continue to follow.
[2019-03-19] MEDS: HYDROcodone/APAP 5/325MG 1 TAB TABLET PO PRN (13:14)
[2019-03-19 15:00] VITALS: BP 143/50
--- NOTE | 2019-03-19 15:05 | NUR ---
Pharmacy Warfarin Dosing Note S:Pharmacy consulted to assist with anticoagulation therapy started with target INR: 2 -3 O:ERROL HODGE is a 88 year old F with Atrial Fibrillation Mechanical Aortic Valve LABS: Last INR: 1.6 Last HGB: 7.3 Last HCT: 22.4 Last PLT: 491 Last dose of 2 mg given on 03/18/19 at Previous Regimen: 3MG DAILY Vitamin K given: Y 5MG SQ X 1 03/17 Drug Interaction Changes: Ongoing Drug Interactions: A:INR of 1.6 is below desired range. Target range for this patient is: 2 -3 P: Warfarin dose: 2.5 mg Today at 1600 Bridge Therapy: None Next INR due IN AM Pharmacy anticoagulation service will continue to follow. HAKAN CHEATHAM [facility], 03/19/19 [id number]
[2019-03-19] MEDS ORDERED: WARFARIN 2.5 MG TABLET. PO ONE (16:00)
--- NOTE | 2019-03-19 17:52 | NUR ---
Wound Care Wound care consult for R calf skin tear and coccyx wound. Pt has skin tear that was draining copious amount of serous fluid. Cleansed wound, covered with Aquacel Ag and ABD pad with Kerlix. Elevated leg on pillow. 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 Cleansed area and covered with foam dressing. Educated pt o n PU prevention and turn Q2H procedure. Pt discharging tomorrow so no bed ordered, wheel chair cushion ordered. WC will continue to follow for possible changes.
--- NOTE | 2019-03-19 18:25 | PDOC ---
PROGRESS NOTES Subjective Subjective Patient seen and examined Objective Objective Vital Signs Date Time Temp Pulse Resp B/P (MAP) Pulse Ox O2 Delivery O2 Flow Rate FiO2 03/19/19 15:28 98 Nasal Cannula 1.0 03/19/19 15:00 97.7 95 18 143/50 (81) 97.7 Intake and Output 03/19/19 07:00 Output Total 750 ml Balance -750 ml Output Urine Total 750 ml Physical Exam Abdomen: Normal bowel sounds Heart: Regular rate General: mild distress Lungs: Other (slightly decreased breath sounds) Assessment Assessment Problems Medical Problems: (1) Acute on chronic renal failure Status: Acute (2) Coagulopathy Status: Acute (3) Hyponatremia Status: Acute (4) Lactic acidosis Status: Acute (5) Metabolic encephalopathy Status: Acute 1. Metabolic encephalopathy. The patient is improving today. 2. Mechanical aortic valve. Echocardiogram from 12/22/18 shows normal functi oning of the valve and normal ejection fraction. INR is now low. Will bridge with Lovenox. 3. History of paroxysmal atrial fibrillation. Bradycardia improved. Continue present treatment. 4. Acute on chronic renal failure. Creatinine improved. Fluids and monitoring of lab. 5. Anemia. Continuing to monitor. 6. Elevated BNP at 6050. Troponin normal. Treatment as above with close monitoring. Comment Review of Relevant I have reviewed the following items carson (where applicable) has been applied. Labs Laboratory Tests Test 03/18/19 06:30 03/19/19 03:36 White Blood Count 10.5 x10^3/uL (4.0-11.0) Red Blood Count 2.41 x10^6/uL (3.50-5.40) Hemoglobin 7.3 g/dL (12.0-15.5) Hematocrit 22.4 % (36.0-47.0) Mean Corpuscular Volume 93 fL (79-100) Mean Corpuscular Hemoglobin 30 pg (25-35) Mean Corpuscular Hemoglobin Concent 33 g/dL (31-37) Red Cell Distribution Width 16.1 % (11.5-14.5) Platelet Count 491 x10^3/uL (140-400) Neutrophils (%) (Auto) 79 % (31-73) Lymphocytes (%) (Auto) 11 % (24-48) Monocytes (%) (Auto) 9 % (0-9) Eosinophils (%) (Auto) 0 % (0-3) Basophils (%) (Auto) 1 % (0-3) Neutrophils # (Auto) 8.3 x10^3/uL (1.8-7.7) Lymphocytes # (Auto) 1.1 x10^3/uL (1.0-4.8) Monocytes # (Auto) 0.9 x10^3/uL (0.0-1.1) Eosinophils # (Auto) 0.0 x10^3/uL (0.0-0.7) Basophils # (Auto) 0.1 x10^3/uL (0.0-0.2) Prothrombin Time 24.5 SEC (11.7-14.0) 18.7 SEC (11.7-14.0) Prothromb Time International Ratio 2.2 (0.8-1.1) 1.6 (0.8-1.1) Sodium Level 135 mmol/L (136-145) 139 mmol/L (136-145) Potassium Level 4.9 mmol/L (3.5-5.1) 4.5 mmol/L (3.5-5.1) Chloride Level 102 mmol/L (98-107) 104 mmol/L (98-107) Carbon Dioxide Level 23 mmol/L (21-32) 23 mmol/L (21-32) Anion Gap 10 (6-14) 12 (6-14) Blood Urea Nitrogen 38 mg/dL (7-20) 30 mg/dL (7-20) Creatinine 2.2 mg/dL (0.6-1.0) 1.8 mg/dL (0.6-1.0) Estimated GFR (Cockcroft-Gault) 21.0 26.5 BUN/Creatinine Ratio 17 (6-20) Glucose Level 116 mg/dL (70-99) 100 mg/dL (70-99) Calcium Level 8.4 mg/dL (8.5-10.1) 8.5 mg/dL (8.5-10.1) Total Bilirubin 0.6 mg/dL (0.2-1.0) Aspartate Amino Transf (AST/SGOT) 35 U/L (15-37) Alanine Aminotransferase (ALT/SGPT) 29 U/L (14-59) Alkaline Phosphatase 76 U/L (46-116) Total Protein 5.7 g/dL (6.4-8.2) Albumin 2.7 g/dL (3.4-5.0) Albumin/Globulin Ratio 0.9 (1.0-1.7) Laboratory Tests Test 03/19/19 03:36 Prothrombin Time 18.7 SEC (11.7-14.0) Prothromb Time International Ratio 1.6 (0.8-1.1) Sodium Level 139 mmol/L (136-145) Potassium Level 4.5 mmol/L (3.5-5.1) Chloride Level 104 mmol/L (98-107) Carbon Dioxide Level 23 mmol/L (21-32) Anion Gap 12 (6-14) Blood Urea Nitrogen 30 mg/dL (7-20) Creatinine 1.8 mg/dL (0.6-1.0) Estimated GFR (Cockcroft-Gault) 26.5 Glucose Level 100 mg/dL (70-99) Calcium Level 8.5 mg/dL (8.5-10.1) Medications Current Medications Sodium Chloride 1,000 ml @ 1,000 mls/hr 1X ONCE IV Last administered on 03/16/19at 22:58; Start 03/16/19 at 23:00; Stop 03/16/19 at 23:59; Status DC Ondansetron HCl (Zofran) 4 mg PRN Q8HRS PRN IV NAUSEA/VOMITING; Start 03/17/19 at 01:00; Stop 03/18/19 at 00:59; Status DC Sodium Chloride 1,000 ml @ 75 mls/hr 1X ONCE IV ; Start 03/17/19 at 01:00; Stop 03/17/19 at 14:19; Status DC Acetaminophen (Tylenol) 500 mg PRN Q6HRS PRN PO MILD PAIN / TEMP; Start 03/17/19 at 08:45 Acetaminophen/ Codeine Phosphate (Tylenol #3) 1 tab PRN Q6HRS PRN PO MODERATE PAIN; Start 03/17/19 at 08:45 Ondansetron HCl (Zofran) 4 mg PRN Q6HRS PRN IVP NAUSEA/VOMITING; Start 03/17/19 at 08:45 Acetaminophen (Tylenol) 1,000 mg TID PRN PRN PO PAIN; Start 03/17/19 at 08:45; Status Cancel Allopurinol (Zyloprim) 300 mg DAILY PO Last administered on 03/19/19 08:57; Start 03/17/19 at 09:00 Amlodipine Besylate (Norvasc) 5 mg DAILY PO Last administered on 03/19/19 08:57; Start 03/17/19 at 09:00 Cyclobenzaprine HCl (Flexeril) 10 mg PRN Q8HRS PRN PO MUSCLE SPASMS Last administered on 03/18/19 14:07; Start 03/17/19 at 08:45 Vitamin B Complex/ Vitamin C (Renate-Vonda) 1 tab DAILY PO Last administered on 03/19/19 08:57; Start 03/17/19 at 09:00 Furosemide (Lasix) 20 mg DAILY PO ; Start 03/17/19 at 09:00; Stop 03/17/19 at 08:41; Status DC Acetaminophen/ Hydrocodone Bitart (Lortab 5/325) 1 tab PRN Q4HRS PRN PO SEVERE PAIN Last administered on 03/19/19 13:14; Start 03/17/19 at 08:45 Isosorbide Mononitrate (Imdur) 30 mg DAILY PO Last administered on 03/19/19 08:59; Start 03/17/19 at 09:00 Lisinopril (Prinivil) 5 mg DAILY PO Last administered on 03/19/19 08:57; Start 03/17/19 at 09:00 Propafenone HCl (Rythmol) 150 mg TID PO Last administered on 03/17/19 14:49; Start 03/17/19 at 09:00; Status Hold Tizanidine HCl (Zanaflex) 4 mg PRN TID PRN PO spasms; Start 03/17/19 at 08:45; Status Cancel Pantoprazole Sodium (Protonix) 40 mg DAILYAC PO Last administered on 03/19/19 08:57; Start 03/18/19 at 07:30 Sodium Chloride 1,000 ml @ 80 mls/hr [id number] IV Last administered on 03/17/19 20:37; Start 03/17/19 at 08:45; Stop 03/18/19 at 11:50; Status DC Phytonadione (Vitamin K Ampule) 5 mg 1X ONCE SQ Last administered on 03/17/19at 10:15; Start 03/17/19 at 10:15; Stop 03/17/19 at 10:16; Status DC Albuterol Sulfate (Ventolin Neb Soln) 2.5 mg PRN Q4HRS PRN NEB SHORTNESS OF BREATH Last administered on 03/19/19at 15:27; Start 03/17/19 at 22:15 Furosemide (Lasix) 40 mg 1X ONCE IVP Last administered on 03/17/19at 22:32; Start 03/17/19 at 22:30; Stop 03/17/19 at 22:31; Status DC Warfarin Sodium (Coumadin Per Pharmacy) 1 each PRN DAILY PRN MC SEE COMMENTS Last administered on 03/19/19at 14:56; Start 03/18/19 at 09:00 Warfarin Sodium (Coumadin) 2 mg 1X WARF ONCE PO Last administered on 03/18/19at 16:35; Start 03/18/19 at 16:00; Stop 03/18/19 at 16:01; Status DC Multivitamins (Thera M Plus) 1 tab DAILY PO ; Start 03/20/19 at 09:00 Ascorbic Acid (Vitamin C) 500 mg DAILY PO ; Start 03/20/19 at 09:00 Warfarin Sodium (Coumadin) 2.5 mg 1X WARF ONCE PO Last administered on 03/19/19at 17:37; Start 03/19/19 at 16:00; Stop 03/19/19 at 16:01; Status DC Enoxaparin Sodium (Lovenox 60mg Syringe) 60 mg QHS SQ ; Start 03/19/19 at 21:00 Active Scripts Active Hydrocodone-Apap 5-325 (Hydrocodone Bit/Acetaminophen) 1 Tab Tablet 1 Tab PO PRN Q4HRS PRN Cyclobenzaprine Hcl 10 Mg Tablet 10 Mg PO PRN Q8HRS PRN Reported Tizanidine Hcl 4 Mg Tablet 4 Mg PO Q8HRS PRN Tylenol Extra Strength (Acetaminophen) 500 Mg Tablet 1,000 Mg PO TID PRN PRN Amlodipine Besylate 5 Mg Tablet 5 Mg PO DAILY 30 Days Furosemide 20 Mg Tablet 20 Mg PO DAILY Nephro-Vonda Tablet (Folic Acid/Vitamin B Comp W-C) 0.8 Mg Tablet 1 Tab PO DAILY Isosorbide Mononitrate Er (Isosorbide Mononitrate) 30 Mg Tab.er.24h 1 Tab PO DAILY Lisinopril 5 Mg Tablet 1 Tab PO DAILY Omeprazole 20 Mg Capsule.dr 1 Cap PO DAILY Metoprolol Succinate ( Xl ) (Metoprolol Succinate) 25 Mg Tab.er.24h 1 Tab PO DAILY Warfarin Sodium 3 Mg Tablet 1 Tab PO DAILY Allopurinol 300 Mg Tablet 1 Tab PO DAILY Propafenone Hcl 150 Mg Tablet 150 Mg PO TID Vitals/I & O Vital Sign - Last 24 Hours 03/18/19 03/18/19 03/18/19 03/18/19 19:00 20:00 21:29 22:29 Temp 98.1 98.1 Pulse 86 Resp 20 B/P (MAP) 123/40 (67) Pulse Ox 97 97 97 O2 Delivery Nasal Cannula Nasal Cannula Nasal Cannula Nasal Cannula O2 Flow Rate 3.0 3.0 3.0 03/18/19 03/19/19 03/19/19 03/19/19 23:00 03:08 06:19 07:00 Temp 98.0 97.4 98.4 98.0 97.4 98.4 Pulse 88 99 95 Resp 20 20 18 B/P (MAP) 143/43 (76) 128/46 (73) 147/45 (79) Pulse Ox 97 92 98 97 O2 Delivery Nasal Cannula Nasal Cannula Nasal Cannula Nasal Cannula O2 Flow Rate 3.0 3.0 03/19/19 03/19/19 03/19/19 03/19/19 08:00 08:57 08:57 08:59 Pulse 95 95 95 B/P (MAP) 147/45 147/45 147/45 O2 Delivery Nasal Cannula O2 Flow Rate 3.0 03/19/19 03/19/19 03/19/19 03/19/19 11:00 11:20 15:00 15:28 Temp 98.1 97.7 98.1 97.7 Pulse 92 95 Resp 18 18 B/P (MAP) 131/43 (72) 143/50 (81) Pulse Ox 100 100 99 98 O2 Delivery Nasal Cannula Nasal Cannula Nasal Cannula Nasal Cannula O2 Flow Rate 3.0 2.0 3.0 1.0 Intake and Output 03/18/19 03/18/19 03/19/19 15:00 23:00 07:00 Output Total 750 ml 0 ml Balance -750 ml 0 ml MCSWEYN,MARISSA J MD Mar 19, 2019 18:25
[2019-03-19] MEDS: CYCLOBENZAPRINE 10 MG TABLET. PO PRN (18:30)
[2019-03-19 19:00] VITALS: BP 148/57
[2019-03-19 23:00] VITALS: BP 140/44
[2019-03-20] VITALS (12 sets, daily range): BP systolic 132–159; BP diastolic 36–83
[2019-03-20 05:45] LABS: BILIRUBIN,URINE NEGATIVE (NEG); CLARITY,URINE TURBID; COLOR,URINE YELLOW; NITRITE,URINE POSITIVE (NEG); PH,URINE 5.5; PROTEIN,URINE 30 mg/dL (NEG-TRACE); UROBILINOGEN,URINE 0.2 mg/dL (0.2 mg/dL)
[2019-03-20 05:59] LABS: SQUAMOUS EPITHELIAL CELL,UR FEW /LPF
[2019-03-20 06:00] LABS: BACTERIA,URINE MANY /HPF (0-FEW); WBC,URINE TNTC /HPF (0-4)
[2019-03-20 07:50] LABS: BASO # 0.1 x10^3/uL (0.0-0.2); BASO % 2 % (0-3); EOS # 0.1 x10^3/uL (0.0-0.7); EOS % 1 % (0-3); HEMATOCRIT 21.4 % (36.0-47.0); LYMPH # 1.5 x10^3/uL (1.0-4.8); LYMPH % 18 % (24-48); MEAN CORPUSCULAR HEMOGLOBIN 30 pg (25-35); MEAN CORPUSCULAR HGB CONC 32 g/dL (31-37); MEAN CORPUSCULAR VOLUME 92 fL (79-100); MONO % 12 % (0-9); NEUT # 5.4 x10^3/uL (1.8-7.7); NEUT % 68 % (31-73); PLATELET COUNT 507 x10^3/uL (140-400); RED BLOOD COUNT 2.32 x10^6/uL (3.50-5.40); RED CELL DISTRIBUTION WIDTH 16.4 % (11.5-14.5)
[2019-03-20 07:58] LABS: PROTHROMBIN TIME PATIENT 19.2 SEC (11.7-14.0)
[2019-03-20 08:04] LABS: HEMOGLOBIN 6.9 g/dL (12.0-15.5)
--- NOTE | 2019-03-20 08:32 | NUR ---
pg over head to Dr. Richards RE Hgb 6.9 @ 2843. No response so pg through you call RE Hgb as well as UA results.
[2019-03-20] MEDS: ASCORBIC ACID 500 MG TABLET PO SCH (08:41)
[2019-03-20] MEDS: FOLIC/VIT B COMP W-C (RENAL) TABLET. PO SCH (08:41)
[2019-03-20] MEDS: PANTOPRAZOLE 40 MG TABLET.DR. PO SCH (08:41)
[2019-03-20] MEDS: ALLOPURINOL 300 MG TABLET. PO SCH (08:41)
[2019-03-20] MEDS: MULTIVITAMIN with MINERAL TABLET. PO SCH (08:41)
[2019-03-20] MEDS: ISOSORBIDE MONONITRATE ER 30 MG TAB.ER.24H PO SCH (08:41)
[2019-03-20] MEDS: amLODIPine BESYLATE 5 MG TABLET PO SCH (08:41)
[2019-03-20] MEDS: LISINOPRIL 5 MG TABLET. PO SCH (08:42)
--- NOTE | 2019-03-20 09:00 | NUR ---
hospitalist service called to see if Dr. Richards had returned pg. service unable to reach him at this time
[2019-03-20] MEDS: ALBUTEROL SULFATE 2.5 MG/3 ML NEBU. NEB PRN (09:01)
--- NOTE | 2019-03-20 12:46 | PDOC ---
CARDIO Progress Notes Date and Time Date of Service 03/20/19 Time of Evaluation 1240 Subjective Subjective: No Chest Pain, No shortness of breath Vitals Vitals Vital Signs Date Time Temp Pulse Resp B/P (MAP) Pulse Ox O2 Delivery O2 Flow Rate FiO2 03/20/19 11:00 104 20 146/68 (94) 96 Nasal Cannula 3.0 03/20/19 07:00 98.0 98.0 Weight Weight [ ] Input and Output Intake and Output Intake and Output 03/20/19 07:00 Intake Total 750 ml Output Total 1550 ml Balance -800 ml Intake Oral 750 ml Output Urine Total 1550 ml Laboratory Labs Laboratory Tests Test 03/20/19 05:26 03/20/19 07:06 Urine Collection Type Unknown Urine Color Yellow Urine Clarity Turbid Urine pH 5.5 Urine Specific [place] 1.010 Urine Protein 30 mg/dL (NEG-TRACE) Urine Glucose (UA) Negative mg/dL (NEG) Urine Ketones (Stick) Negative mg/dL (NEG) Urine Blood Moderate (NEG) Urine Nitrite Positive (NEG) Urine Bilirubin Negative (NEG) Urine Urobilinogen Dipstick 0.2 mg/dL (0.2 mg/dL) Urine Leukocyte Esterase Large (NEG) Urine RBC 3-5 /HPF (0-2) Urine WBC Tntc /HPF (0-4) Urine Squamous Epithelial Cells Few /LPF Urine Bacteria Many /HPF (0-FEW) White Blood Count 8.0 x10^3/uL (4.0-11.0) Red Blood Count 2.32 x10^6/uL (3.50-5.40) Hemoglobin 6.9 g/dL (12.0-15.5) Hematocrit 21.4 % (36.0-47.0) Mean Corpuscular Volume 92 fL (79-100) Mean Corpuscular Hemoglobin 30 pg (25-35) Mean Corpuscular Hemoglobin Concent 32 g/dL (31-37) Red Cell Distribution Width 16.4 % (11.5-14.5) Platelet Count 507 x10^3/uL (140-400) Neutrophils (%) (Auto) 68 % (31-73) Lymphocytes (%) (Auto) 18 % (24-48) Monocytes (%) (Auto) 12 % (0-9) Eosinophils (%) (Auto) 1 % (0-3) Basophils (%) (Auto) 2 % (0-3) Neutrophils # (Auto) 5.4 x10^3/uL (1.8-7.7) Lymphocytes # (Auto) 1.5 x10^3/uL (1.0-4.8) Monocytes # (Auto) 1.0 x10^3/uL (0.0-1.1) Eosinophils # (Auto) 0.1 x10^3/uL (0.0-0.7) Basophils # (Auto) 0.1 x10^3/uL (0.0-0.2) Prothrombin Time 19.2 SEC (11.7-14.0) Prothromb Time International Ratio 1.6 (0.8-1.1) Physical Exam HEENT: Neck Supple W Full Motion Chest: Symmetric LUNGS: Other (diminished, wheezy) Heart: S1S2, irregularly irregular (off tele; heart tones irregular) Extremities: Other (1+ bilateral LE edema ) Neurology: alert, confused Assessment Assessment 1. Mechanical fall. Recent left femoral neck fracture; s/p arthroplasty secondary to mechanical fall 2. Metabolic encephalopathy; remains confused. Is 1:1 3. Acute on chronic diastolic CHF 4. PAFIB; heart tones now irregular 5. Bradycardia- resolved. Metoprolol and rhythmol held. Now tachycardic and heart tones irregular 6. Hypertension; controlled 7. KODY on CKD; improved 8. s/p mechanical valve replacement. Echo 01/06 wt normal valve function. LVEF preserved. INR 1.6. Bridging with Lovenox 9. Anemia 10. UTI Recommendations CXR Lasix PRN Transfer to [facility] for rhythm monitoring. Resume propafenone for HR/rhythm control Lovenox bridging while INR sub therapeutic Further recommendations pending review of telemetry Supportive care DELBERT SUAREZ APRN Mar 20, 2019 12:46
--- NOTE | 2019-03-20 13:35 | NUR ---
Pt has been accepted at [facility] and facility will have a bed available upon dc. Pt moving to cardiac floor per RN.
--- NOTE | 2019-03-20 14:05 | PDOC ---
[employer] PROGRESS NOTE Chief Complaint Chief Complaint Metabolic encephalopathy, resolving Paroxysmal A-fib Mechanical aortic valve Post-op day 11 of left hip surgery HTN Aortic stenosis Chronic Renal Insufficiency History of Present Illness History of Present Illness 03/19/19 Pt seen and examined Pt was pleasantly confused DW RN Reviewed pt's chart 03/20/19 Should seen and examined Chart reviewed Discussed with RN Vitals/I&O Vitals/I&O: Vital Signs Date Time Temp Pulse Resp B/P (MAP) Pulse Ox O2 Delivery O2 Flow Rate FiO2 03/20/19 11:00 104 20 146/68 (94) 96 Nasal Cannula 3.0 03/20/19 07:00 98.0 98.0 I & O 03/19/19 03/19/19 03/20/19 15:00 23:00 07:00 Intake Total 150 ml 600 ml Output Total 700 ml 850 ml Balance -550 ml -250 ml Physical Exam General: mild distress Heart: Regular rate Lungs: Clear Abdomen: Normal bowel sounds Extremities: No clubbing, No cyanosis, Other (dry left hip dressing) Skin: No rashes, No breakdown, No significant lesion Labs Labs: Laboratory Tests Test 03/20/19 05:26 03/20/19 07:06 Urine Collection Type Unknown Urine Color Yellow Urine Clarity Turbid Urine pH 5.5 Urine Specific [place] 1.010 Urine Protein 30 mg/dL (NEG-TRACE) Urine Glucose (UA) Negative mg/dL (NEG) Urine Ketones (Stick) Negative mg/dL (NEG) Urine Blood Moderate (NEG) Urine Nitrite Positive (NEG) Urine Bilirubin Negative (NEG) Urine Urobilinogen Dipstick 0.2 mg/dL (0.2 mg/dL) Urine Leukocyte Esterase Large (NEG) Urine RBC 3-5 /HPF (0-2) Urine WBC Tntc /HPF (0-4) Urine Squamous Epithelial Cells Few /LPF Urine Bacteria Many /HPF (0-FEW) White Blood Count 8.0 x10^3/uL (4.0-11.0) Red Blood Count 2.32 x10^6/uL (3.50-5.40) Hemoglobin 6.9 g/dL (12.0-15.5) Hematocrit 21.4 % (36.0-47.0) Mean Corpuscular Volume 92 fL (79-100) Mean Corpuscular Hemoglobin 30 pg (25-35) Mean Corpuscular Hemoglobin Concent 32 g/dL (31-37) Red Cell Distribution Width 16.4 % (11.5-14.5) Platelet Count 507 x10^3/uL (140-400) Neutrophils (%) (Auto) 68 % (31-73) Lymphocytes (%) (Auto) 18 % (24-48) Monocytes (%) (Auto) 12 % (0-9) Eosinophils (%) (Auto) 1 % (0-3) Basophils (%) (Auto) 2 % (0-3) Neutrophils # (Auto) 5.4 x10^3/uL (1.8-7.7) Lymphocytes # (Auto) 1.5 x10^3/uL (1.0-4.8) Monocytes # (Auto) 1.0 x10^3/uL (0.0-1.1) Eosinophils # (Auto) 0.1 x10^3/uL (0.0-0.7) Basophils # (Auto) 0.1 x10^3/uL (0.0-0.2) Prothrombin Time 19.2 SEC (11.7-14.0) Prothromb Time International Ratio 1.6 (0.8-1.1) Assessment and Plan Assessmemt and Plan Problems Medical Problems: (1) Acute on chronic renal failure Status: Acute (2) Coagulopathy Status: Acute (3) Hyponatremia Status: Acute (4) Lactic acidosis Status: Acute (5) Metabolic encephalopathy Anemia with hemoglobin 6.9 Metabolic encephalopathy, resolving Paroxysmal A-fib Mechanical aortic valve Post-op day 11 of left hip surgery HTN Aortic stenosis Chronic Renal Insufficiency Plan Transfuse 1 unit of packed red blood cells PT OT DVT prophylaxis Full code Cardiac monitoring Home meds Await further subspecialist input Comment Review of Relevant I have reviewed the following items carson (where applicable) has been applied. Medications: Current Medications Medications (Trade) Dose Ordered Sig/Hiram Route PRN Reason Start Time Stop Time Status Last Admin Dose Admin Multivitamins (Thera M Plus) 1 tab DAILY PO 03/20/19 09:00 03/20/19 08:41 Ascorbic Acid (Vitamin C) 500 mg DAILY PO 03/20/19 09:00 03/20/19 08:41 Warfarin Sodium (Coumadin) 2.5 mg 1X WARF ONCE PO 03/19/19 16:00 03/19/19 16:01 DC 03/19/19 17:37 Enoxaparin Sodium (Lovenox 60mg Syringe) 60 mg QHS SQ 03/19/19 21:00 03/19/19 20:59 Levofloxacin/ Dextrose 50 ml @ 50 mls/hr Q24H IV 03/20/19 10:00 03/20/19 10:40 KEZIA SON III DO Mar 20, 2019 14:05
--- NOTE | 2019-03-20 14:47 | NUR ---
pt transferred to 654 for monitored bed. report given to JEFF Eng
[2019-03-20] MEDS: PROPAFENONE 150 MG TABLET. PO SCH ×2 (14:51→21:38)
--- NOTE | 2019-03-20 15:03 | NUR ---
Pharmacy Warfarin Dosing Note S: Pharmacy consulted to assist with anticoagulation therapy O: ERROL HODGE is a 88 year old F with Atrial Fibrillation, Mechanical Aortic Valve LABS: Last INR: 1.6 Last HGB: 6.9 Last HCT: 21.4 Last PLT: 507 Last dose of 2.5 mg given on 03/19/19 at 1737 Vitamin K given: 5 mg SQ X 1 03/17 Ongoing Drug Interactions: LEVAQUIN A:INR of 1.6 is below desired range. Target range for this patient is: 2 - 3 P: Warfarin dose: 2.5 mg Today at 1600 Bridge Therapy: None 1 mg/kg q24h Next INR due 03/21/19 Pharmacy anticoagulation service will continue to follow. CHRISTA ORTIZ [facility], 03/20/19 [id number]
[2019-03-20] MEDS ORDERED: WARFARIN 2.5 MG TABLET. PO ONE (16:00)
[2019-03-20] MEDS ORDERED: WARFARIN 2 MG TABLET. PO ONE (16:00)
--- NOTE | 2019-03-20 16:09 | RAD ---
EXAM: Chest, single view. HISTORY: Shortness of air. COMPARISON: 03/17/2019 FINDINGS: A frontal view of the chest obtained. There is stable diffuse interstitial infiltrate and small right greater than left pleural effusions. There is a new nodular opacity overlying the right upper lobe due to focal partially consolidated infiltrate. There is a stable cardiac silhouette and evidence of prior CABG. IMPRESSION: Stable diffuse interstitial infiltrate with small right greater than left pleural effusions. There is a new nodular opacity overlying the right upper lobe which may be due to partially consolidated infiltrate. Short-term follow-up is recommended to confirm resolution. Electronically signed by: Marlen Pichardo MD (03/20/2019 4:06 PM) [facility]
[2019-03-20 20:21] LABS: HEMOGLOBIN 8.8 g/dL (12.0-15.5)
[2019-03-20] MEDS: LACTOBACILLUS RHAMNOSUS GG 1 CAPSULE. PO SCH (21:32)
[2019-03-20] MEDS: HYDROcodone/APAP 5/325MG 1 TAB TABLET PO PRN (21:32)
[2019-03-21] MEDS: PROPAFENONE 150 MG TABLET. PO SCH ×3 (06:00→20:25)
[2019-03-21 07:00] VITALS: BP 137/69
[2019-03-21] MEDS: LISINOPRIL 5 MG TABLET. PO SCH (08:07)
[2019-03-21] MEDS: amLODIPine BESYLATE 5 MG TABLET PO SCH (08:07)
[2019-03-21] MEDS: ISOSORBIDE MONONITRATE ER 30 MG TAB.ER.24H PO SCH (08:08)
[2019-03-21] MEDS: ASCORBIC ACID 500 MG TABLET PO SCH (08:10)
[2019-03-21] MEDS: ALLOPURINOL 300 MG TABLET. PO SCH (08:10)
[2019-03-21] MEDS: MULTIVITAMIN with MINERAL TABLET. PO SCH (08:10)
[2019-03-21] MEDS: PANTOPRAZOLE 40 MG TABLET.DR. PO SCH (08:10)
[2019-03-21] MEDS: LACTOBACILLUS RHAMNOSUS GG 1 CAPSULE. PO SCH ×2 (08:11→20:25)
[2019-03-21 08:21] LABS: PROTHROMBIN TIME PATIENT 21.6 SEC (11.7-14.0)
[2019-03-21] MEDS: FOLIC/VIT B COMP W-C (RENAL) TABLET. PO SCH (09:00)
[2019-03-21 11:00] VITALS: BP 128/65
--- NOTE | 2019-03-21 13:27 | PDOC ---
[employer] PROGRESS NOTE Chief Complaint Chief Complaint Metabolic encephalopathy, resolving Paroxysmal A-fib Mechanical aortic valve Post-op day 11 of left hip surgery HTN Aortic stenosis Chronic Renal Insufficiency History of Present Illness History of Present Illness 03/19/19 Pt seen and examined Pt was pleasantly confused DW RN Reviewed pt's chart 03/20/19 Should seen and examined Chart reviewed Discussed with RN [id number] Patient seen and examined Chart reviewed Discussed with RN Vitals/I&O Vitals/I&O: Vital Signs Date Time Temp Pulse Resp B/P (MAP) Pulse Ox O2 Delivery O2 Flow Rate FiO2 03/21/19 11:00 98.2 100 18 128/65 (86) 96 Nasal Cannula 3.0 98.2 I & O 03/20/19 03/20/19 03/21/19 15:00 23:00 07:00 Intake Total 448 ml 0 ml Output Total 1050 ml 250 ml 150 ml Balance -1050 ml 198 ml -150 ml Physical Exam General: mild distress Heart: Regular rate Lungs: Clear Abdomen: Normal bowel sounds Extremities: No clubbing, No cyanosis, Other (dry left hip dressing) Skin: No rashes, No breakdown, No significant lesion Labs Labs: Laboratory Tests Test 03/20/19 20:10 03/21/19 07:30 Hemoglobin 8.8 g/dL (12.0-15.5) Hematocrit 27.0 % (36.0-47.0) Mean Corpuscular Hemoglobin Concent 33 g/dL (31-37) Prothrombin Time 21.6 SEC (11.7-14.0) Prothromb Time International Ratio 1.9 (0.8-1.1) Assessment and Plan Assessmemt and Plan Problems Medical Problems: (1) Acute on chronic renal failure Status: Acute (2) Coagulopathy Status: Acute (3) Hyponatremia Status: Acute (4) Lactic acidosis Status: Acute (5) Metabolic encephalopathy Status: Acute Anemia with hemoglobin 6.9 now up to 8.1 after transfusions Metabolic encephalopathy, resolving Paroxysmal A-fib Mechanical aortic valve Post-op day 11 of left hip surgery HTN Aortic stenosis Chronic Renal Insufficiency Plan Trend hemoglobin PT OT DVT prophylaxis Full code Cardiac monitoring Home meds Await further subspecialist input Comment Review of Relevant I have reviewed the following items carson (where applicable) has been applied. Medications: Current Medications Medications (Trade) Dose Ordered Sig/Hiram Route PRN Reason Start Time Stop Time Status Last Admin Dose Admin Propafenone HCl (Rythmol) 150 mg Q8HRS PO 03/20/19 14:00 03/20/19 21:38 Warfarin Sodium (Coumadin) 2.5 mg 1X WARF ONCE PO 03/20/19 16:00 03/20/19 16:05 DC 03/20/19 16:57 Lactobacillus Rhamnosus (Culturelle) 1 cap BID PO 03/20/19 21:00 03/21/19 08:11 KEZIA SON III DO Mar 21, 2019 13:27
[2019-03-21 15:48] VITALS: BP 143/88
[2019-03-21] MEDS ORDERED: WARFARIN 3 MG TABLET. PO ONE (16:00)
[2019-03-21 16:40] VITALS: BP 149/69
--- NOTE | 2019-03-21 16:55 | PDOC ---
PROGRESS NOTES Subjective Subjective Patient seen and examined Objective Objective Vital Signs Date Time Temp Pulse Resp B/P (MAP) Pulse Ox O2 Delivery O2 Flow Rate FiO2 03/21/19 15:48 98.7 98 20 143/88 (106) 93 Nasal Cannula 3.0 98.7 Intake and Output0 03/21/19 07:00 Intake Total 448 ml Output Total 1450 ml Balance -1002 ml Intake Oral 100 ml Blood Product IV Normal Saline Flush 348 ml Output Urine Total 1450 ml Physical Exam Abdomen: Normal bowel sounds Heart: Regular rate General: mild distress Lungs: Other (mildly decreased breath sounds) Assessment Assessment Problems Medical Problems: (1) Acute on chronic renal failure Status: Acute (2) Coagulopathy Status: Acute (3) Hyponatremia Status: Acute (4) Lactic acidosis Status: Acute (5) Metabolic encephalopathy Status: Acute 1. Mechanical fall. Recent left femoral neck fracture; s/p arthroplasty seco ndary to mechanical fall 2. Metabolic encephalopathy; remains confused. 3. Acute on chronic diastolic CHF. Continue present medications. 4. PAFIB; heart tones now irregular 5. Bradycardia- resolved. Metoprolol and rhythmol held. Now tachycardic and r ythmol restarted. 6. Hypertension; controlled 7. KODY on CKD; improved 8. s/p mechanical valve replacement. Echo 01/06 wtih normal valve function. LVEF preserved. Bridging with Lovenox 9. Anemia 10. UTI Comment Review of Relevant I have reviewed the following items carson (where applicable) has been applied. Labs Laboratory Tests Test 03/20/19 05:26 03/20/19 07:06 03/20/19 20:10 03/21/19 07:30 Urine Collection Type Unknown Urine Color Yellow Urine Clarity Turbid Urine pH 5.5 Urine Specific [place] 1.010 Urine Protein 30 mg/dL (NEG-TRACE) Urine Glucose (UA) Negative mg/dL (NEG) Urine Ketones (Stick) Negative mg/dL (NEG) Urine Blood Moderate (NEG) Urine Nitrite Positive (NEG) Urine Bilirubin Negative (NEG) Urine Urobilinogen Dipstick 0.2 mg/dL (0.2 mg/dL) Urine Leukocyte Esterase Large (NEG) Urine RBC 3-5 /HPF (0-2) Urine WBC Tntc /HPF (0-4) Urine Squamous Epithelial Cells Few /LPF Urine Bacteria Many /HPF (0-FEW) White Blood Count 8.0 x10^3/uL (4.0-11.0) Red Blood Count 2.32 x10^6/uL (3.50-5.40) Hemoglobin 6.9 g/dL (12.0-15.5) 8.8 g/dL (12.0-15.5) Hematocrit 21.4 % (36.0-47.0) 27.0 % (36.0-47.0) Mean Corpuscular Volume 92 fL (79-100) Mean Corpuscular Hemoglobin 30 pg (25-35) Mean Corpuscular Hemoglobin Concent 32 g/dL (31-37) 33 g/dL (31-37) Red Cell Distribution Width 16.4 % (11.5-14.5) Platelet Count 507 x10^3/uL (140-400) Neutrophils (%) (Auto) 68 % (31-73) Lymphocytes (%) (Auto) 18 % (24-48) Monocytes (%) (Auto) 12 % (0-9) Eosinophils (%) (Auto) 1 % (0-3) Basophils (%) (Auto) 2 % (0-3) Neutrophils # (Auto) 5.4 x10^3/uL (1.8-7.7) Lymphocytes # (Auto) 1.5 x10^3/uL (1.0-4.8) Monocytes # (Auto) 1.0 x10^3/uL (0.0-1.1) Eosinophils # (Auto) 0.1 x10^3/uL (0.0-0.7) Basophils # (Auto) 0.1 x10^3/uL (0.0-0.2) Prothrombin Time 19.2 SEC (11.7-14.0) 21.6 SEC (11.7-14.0) Prothromb Time International Ratio 1.6 (0.8-1.1) 1.9 (0.8-1.1) Laboratory Tests Test 03/20/19 20:10 03/21/19 07:30 Hemoglobin 8.8 g/dL (12.0-15.5) Hematocrit 27.0 % (36.0-47.0) Mean Corpuscular Hemoglobin Concent 33 g/dL (31-37) Prothrombin Time 21.6 SEC (11.7-14.0) Prothromb Time International Ratio 1.9 (0.8-1.1) Medications Current Medications Sodium Chloride 1,000 ml @ 1,000 mls/hr 1X ONCE IV Last administered on 03/16/19at 22:58; Start 03/16/19 at 23:00; Stop 03/16/19 at 23:59; Status DC Ondansetron HCl (Zofran) 4 mg PRN Q8HRS PRN IV NAUSEA/VOMITING; Start 03/17/19 at 01:00; Stop 03/18/19 at 00:59; Status DC Sodium Chloride 1,000 ml @ 75 mls/hr 1X ONCE IV ; Start 03/17/19 at 01:00; Stop 03/17/19 at 14:19; Status DC Acetaminophen (Tylenol) 500 mg PRN Q6HRS PRN PO MILD PAIN / TEMP; Start 03/17/19 at 08:45 Acetaminophen/ Codeine Phosphate (Tylenol #3) 1 tab PRN Q6HRS PRN PO MODERATE PAIN; Start 03/17/19 at 08:45 Ondansetron HCl (Zofran) 4 mg PRN Q6HRS PRN IVP NAUSEA/VOMITING; Start 03/17/19 at 08:45 Acetaminophen (Tylenol) 1,000 mg TID PRN PRN PO PAIN; Start 03/17/19 at 08:45; Status Cancel Allopurinol (Zyloprim) 300 mg DAILY PO Last administered on 03/21/19at 08:10; Start 03/17/19 at 09:00 Amlodipine Besylate (Norvasc) 5 mg DAILY PO Last administered on 03/21/19at 08:07; Start 03/17/19 at 09:00 Cyclobenzaprine HCl (Flexeril) 10 mg PRN Q8HRS PRN PO MUSCLE SPASMS Last administered on 03/19/19at 18:30; Start 03/17/19 at 08:45 Vitamin B Complex/ Vitamin C (Renate-Vonda) 1 tab DAILY PO Last administered on 03/20/19at 08:41; Start 03/17/19 at 09:00 Furosemide (Lasix) 20 mg DAILY PO ; Start 03/17/19 at 09:00; Stop 03/17/19 at 08:41; Status DC Acetaminophen/ Hydrocodone Bitart (Lortab 5/325) 1 tab PRN Q4HRS PRN PO SEVERE PAIN Last administered on 03/20/19at 21:32; Start 03/17/19 at 08:45 Isosorbide Mononitrate (Imdur) 30 mg DAILY PO Last administered on 03/21/19 08:08; Start 03/17/19 at 09:00 Lisinopril (Prinivil) 5 mg DAILY PO Last administered on 03/21/19 08:07; Start 03/17/19 at 09:00 Propafenone HCl (Rythmol) 150 mg TID PO Last administered on 03/17/19at 14:49; Start 03/17/19 at 09:00; Stop 03/20/19 at 09:55; Status DC Tizanidine HCl (Zanaflex) 4 mg PRN TID PRN PO spasms; Start 03/17/19 at 08:45; Status Cancel Pantoprazole Sodium (Protonix) 40 mg DAILYAC PO Last administered on 03/21/19at 08:10; Start 03/18/19 at 07:30 Sodium Chloride 1,000 ml @ 80 mls/hr [id number] IV Last administered on 03/17/19at 20:37; Start 03/17/19 at 08:45; Stop 03/18/19 at 11:50; Status DC Phytonadione (Vitamin K Ampule) 5 mg 1X ONCE SQ Last administered on 03/17/19at 10:15; Start 03/17/19 at 10:15; Stop 03/17/19 at 10:16; Status DC Albuterol Sulfate (Ventolin Neb Soln) 2.5 mg PRN Q4HRS PRN NEB SHORTNESS OF BR EATH Last administered on 03/20/19at 09:01; Start 03/17/19 at 22:15 Furosemide (Lasix) 40 mg 1X ONCE IVP Last administered on 03/17/19at 22:32; Start 03/17/19 at 22:30; Stop 03/17/19 at 22:31; Status DC Warfarin Sodium (Coumadin Per Pharmacy) 1 each PRN DAILY PRN MC SEE COMMENTS Last administered on 03/21/19at 15:28; Start 03/18/19 at 09:00 Warfarin Sodium (Coumadin) 2 mg 1X WARF ONCE PO Last administered on 03/18/19at 16:35; Start 03/18/19 at 16:00; Stop 03/18/19 at 16:01; Status DC Multivitamins (Thera M Plus) 1 tab DAILY PO Last administered on 03/21/19at 08:10; Start 03/20/19 at 09:00 Ascorbic Acid (Vitamin C) 500 mg DAILY PO Last administered on 03/21/19at 08:10; Start 03/20/19 at 09:00 Warfarin Sodium (Coumadin) 2.5 mg 1X WARF ONCE PO Last administered on 03/19/19at 17:37; Start 03/19/19 at 16:00; Stop 03/19/19 at 16:01; Status DC Enoxaparin Sodium (Lovenox 60mg Syringe) 60 mg QHS SQ Last administered on 03/19/19at 20:59; Start 03/19/19 at 21:00 Levofloxacin/ Dextrose 50 ml @ 50 mls/hr Q24H IV Last administered on 03/21/19at 12:08; Start 03/20/19 at 10:00 Propafenone HCl (Rythmol) 150 mg Q8HRS PO Last administered on 03/20/19at 21:38; Start 03/20/19 at 14:00 Warfarin Sodium (Coumadin) 2 mg 1X WARF ONCE PO ; Start 03/20/19 at 16:00; Stop 03/20/19 at 16:01; Status Cancel Warfarin Sodium (Coumadin) 2.5 mg 1X WARF ONCE PO Last administered on 03/20/19at 16:57; Start 03/20/19 at 16:00; Stop 03/20/19 at 16:05; Status DC Lactobacillus Rhamnosus (Culturelle) 1 cap BID PO Last administered on 03/21/19at 08:11; Start 03/20/19 at 21:00 Amino Acids/ Glycerin/ Electrolytes 1,000 ml @ 75 mls/hr [id number] IV ; Start 03/21/19 at 15:00 Warfarin Sodium (Coumadin) 3 mg 1X WARF ONCE PO ; Start 03/21/19 at 16:00; Stop 03/21/19 at 16:01; Status DC Active Scripts Active Hydrocodone-Apap 5-325 (Hydrocodone Bit/Acetaminophen) 1 Tab Tablet 1 Tab PO PRN Q4HRS PRN Cyclobenzaprine Hcl 10 Mg Tablet 10 Mg PO PRN Q8HRS PRN Reported Tizanidine Hcl 4 Mg Tablet 4 Mg PO Q8HRS PRN Tylenol Extra Strength (Acetaminophen) 500 Mg Tablet 1,000 Mg PO TID PRN PRN Amlodipine Besylate 5 Mg Tablet 5 Mg PO DAILY 30 Days Furosemide 20 Mg Tablet 20 Mg PO DAILY Nephro-Vonda Tablet (Folic Acid/Vitamin B Comp W-C) 0.8 Mg Tablet 1 Tab PO DAILY Isosorbide Mononitrate Er (Isosorbide Mononitrate) 30 Mg Tab.er.24h 1 Tab PO DAILY Lisinopril 5 Mg Tablet 1 Tab PO DAILY Omeprazole 20 Mg Capsule.dr 1 Cap PO DAILY Metoprolol Succinate ( Xl ) (Metoprolol Succinate) 25 Mg Tab.er.24h 1 Tab PO DAILY Warfarin Sodium 3 Mg Tablet 1 Tab PO DAILY Allopurinol 300 Mg Tablet 1 Tab PO DAILY Propafenone Hcl 150 Mg Tablet 150 Mg PO TID Vitals/I & O Vital Sign - Last 24 Hours 03/20/19 03/20/19 03/20/19 03/20/19 17:15 18:00 19:05 20:19 Temp 97.5 97.6 97.5 97.6 Pulse 104 104 105 Resp 24 24 22 B/P (MAP) 141/63 147/70 132/70 (90) Pulse Ox 95 O2 Delivery Nasal Cannula Nasal Cannula O2 Flow Rate 3.0 1.0 03/20/19 03/20/19 03/20/19 03/20/19 21:32 21:38 22:30 23:09 Temp 98.4 98.4 Pulse 105 100 Resp 20 B/P (MAP) 132/70 139/62 (87) Pulse Ox 95 O2 Delivery Nasal Cannula Nasal Cannula Nasal Cannula O2 Flow Rate 3.0 2.0 3.0 03/21/19 03/21/19 03/21/19 03/21/19 07:00 08:00 08:07 08:07 Temp 98.4 98.4 Pulse 103 103 103 Resp 22 B/P (MAP) 137/69 (91) 137/69 137/69 Pulse Ox 95 O2 Delivery Nasal Cannula Nasal Cannula O2 Flow Rate 3.0 3.0 03/21/19 03/21/19 03/21/19 08:08 11:00 15:48 Temp 98.2 98.7 98.2 98.7 Pulse 103 100 98 Resp 18 20 B/P (MAP) 137/69 128/65 (86) 143/88 (106) Pulse Ox 96 93 O2 Delivery Nasal Cannula Nasal Cannula O2 Flow Rate 3.0 3.0 Intake and Output 03/20/19 03/20/19 03/21/19 15:00 23:00 07:00 Intake Total 448 ml 0 ml Output Total 1050 ml 250 ml 150 ml Balance -1050 ml 198 ml -150 ml MARISSA ROBERTO MD Mar 21, 2019 16:54
[2019-03-21] MEDS ORDERED: DIGOXIN IV 500 MCG/2 ML AMPUL. IV ONE (17:15)
[2019-03-21] MEDS: AMINO AC 3%/ELECTROLYTE/GLYCER 1,000 ML IV SCH (18:30)
[2019-03-21 19:56] VITALS: BP 169/62
[2019-03-21 22:17] VITALS: BP 174/62
[2019-03-22 03:53] VITALS: BP 133/59
[2019-03-22 07:00] VITALS: BP 147/64
[2019-03-22] MEDS ORDERED: MULT1TAB90 PO (07:30)
[2019-03-22] MEDS ORDERED: ASCO500T2 PO (07:30)
[2019-03-22] MEDS ORDERED: ALBU2.5V8 NEB (07:30)
[2019-03-22] MEDS ORDERED: HYDR-2761 PO (07:30)
[2019-03-22] MEDS: PANTOPRAZOLE 40 MG TABLET.DR. PO SCH (07:32)
[2019-03-22] MEDS ORDERED: LEVO500T59 PO (07:32)
[2019-03-22] MEDS: LACTOBACILLUS RHAMNOSUS GG 1 CAPSULE. PO SCH (07:33)
[2019-03-22] MEDS: MULTIVITAMIN with MINERAL TABLET. PO SCH (07:33)
[2019-03-22] MEDS: ISOSORBIDE MONONITRATE ER 30 MG TAB.ER.24H PO SCH (07:33)
[2019-03-22] MEDS: ALLOPURINOL 300 MG TABLET. PO SCH (07:33)
--- NOTE | 2019-03-22 07:33 | SNU/HH DC ---
DISCHARGE ORDERS DISCHARGE INFORMATION: DISCHARGE DATE: Mar 22, 2019 FINAL DIAGNOSIS Problems Medical Problems: (1) Acute on chronic renal failure Status: Acute (2) Coagulopathy Status: Acute (3) Hyponatremia Status: Acute (4) Lactic acidosis Status: Acute (5) Metabolic encephalopathy Status: Acute CONDITION ON DISCHARGE: Stable CODE STATUS: Code Status: DNR/DNI NURSING HOME: SNF STAY <30 DAYS: Yes HOSPICE: HOSPICE: No HOSPICE EVAL & TREAT: No LTAC: ADMIT TO LTAC: No POST DISCHARGE ORDERS: ACTIVITY ORDERS: Resume previous activity DIET AFTER DISCHARGE: Regular CHECKS AFTER DISCHARGE: CHECKS AFTER DISCHARGE: Check blood press - daily, Check blood sugar, ac/hs FOLLOW-UP: PHYSICIAN FOLLOW-UP: levaquin for 7 days for new consolidation on CXR, warf goal 2-3 lifelong TREATMENT/EQUIPMENT ORDERS: ADAPTIVE EQUIPMENT NEEDED: Front wheeled walker Physical Therapy For: Evalulation/Treatment Occupational Therapy For: Evaluation/Treatment DISCHARGE MEDICATIONS: Home Meds Active Scripts Levofloxacin (LEVAQUIN) 500 Mg Tablet, 1 TAB PO DAILY for HCAP for 7 Days, #7 TAB 0 Refills Prov:REBEKAH AKINS MD 03/22/19 Albuterol Sulfate (Proair Hfa) 8.5 Gm Hfa.aer.ad, 2.5 MG NEB PRN Q4HRS PRN for SHORTNESS OF BREATH for 30 Days, INHALER Prov:REBEKAH AKINS MD 03/22/19 Multivits,Ca,Minerals/Iron/Fa (THERA-M TABLET) 1 Each Tablet, 1 TAB PO DAILY for mvi, #30 TAB Prov:REBEKAH AKINS MD 03/22/19 Ascorbic Acid (VITAMIN C) 500 Mg Tablet, 500 MG PO DAILY for mvi, #30 TAB Prov:REBEKAH AKINS MD 03/22/19 Hydrocodone Bit/Acetaminophen (HYDROCODONE-APAP 5-325 ) 1 Tab Tablet, 1 TAB PO PRN Q4HRS PRN for MODERATE PAIN, #20 TAB Prov:REBEKAH AKINS MD 03/22/19 Cyclobenzaprine Hcl (CYCLOBENZAPRINE HCL) 10 Mg Tablet, 10 MG PO PRN Q8HRS PRN for MUSCLE SPASMS, #30 TAB Prov:REBEKAH AKINS MD 03/09/19 Reported Medications Tizanidine Hcl (TIZANIDINE HCL) 4 Mg Tablet, 4 MG PO Q8HRS prn for muscle spasms, TAB 03/17/19 Acetaminophen (TYLENOL EXTRA STRENGTH) 500 Mg Tablet, 1000 MG PO TID PRN PRN for PAIN, TAB 03/17/19 Amlodipine Besylate (AMLODIPINE BESYLATE) 5 Mg Tablet, 5 MG PO DAILY for htn for 30 Days, #30 11 Refills 03/04/19 Furosemide (FUROSEMIDE) 20 Mg Tablet, 20 MG PO DAILY for chf, TAB 03/03/19 Folic Acid/Vitamin B Comp W-C (NEPHRO-DIANE TABLET) 0.8 Mg Tablet, 1 TAB PO DAILY, #30 TAB 5 Refills 08/14/14 Isosorbide Mononitrate (ISOSORBIDE MONONITRATE ER) 30 Mg Tab.er.24h, 1 TAB PO DAILY, #30 TAB 5 Refills 08/14/14 Lisinopril (LISINOPRIL) 5 Mg Tablet, 1 TAB PO DAILY, #30 TAB 5 Refills 08/14/14 Omeprazole (OMEPRAZOLE) 20 Mg Capsule.dr, 1 CAP PO DAILY, #30 CAP 5 Refills 08/14/14 Metoprolol Succinate (METOPROLOL SUCCINATE ( XL )) 25 Mg Tab.er.24h, 1 TAB PO DAILY, #30 TAB 5 Refills 08/13/14 Warfarin Sodium (WARFARIN SODIUM) 3 Mg Tablet, 1 TAB PO DAILY, #30 TAB 5 Refills 08/13/14 Allopurinol (ALLOPURINOL) 300 Mg Tablet, 1 TAB PO DAILY, #30 TAB 5 Refills 08/13/14 Propafenone Hcl (PROPAFENONE HCL) 150 Mg Tablet, 150 MG PO TID 08/13/14 REBEKAH AKINS MD Mar 22, 2019 07:33
[2019-03-22] MEDS: amLODIPine BESYLATE 5 MG TABLET PO SCH (07:34)
[2019-03-22] MEDS: ASCORBIC ACID 500 MG TABLET PO SCH (07:34)
[2019-03-22] MEDS: LISINOPRIL 5 MG TABLET. PO SCH (07:34)
[2019-03-22] MEDS: PROPAFENONE 150 MG TABLET. PO SCH (07:35)
[2019-03-22] MEDS: FOLIC/VIT B COMP W-C (RENAL) TABLET. PO SCH (07:35)
[2019-03-22] MEDS: AMINO AC 3%/ELECTROLYTE/GLYCER 1,000 ML IV SCH (10:31)
[2019-03-22 11:00] VITALS: BP 134/61
--- NOTE | 2019-03-22 11:35 | PDOC3 ---
Discharge Summary Visit Information Date of Admission: Mar 17, 2019 Date of Discharge: Mar 22, 2019 Admitting Diagnosis Comment: NOn injury fall at SNU REcent left hip sx - s.p distant repair 37 yrs ago on warf chronically MEchanical aortic valve SUpratherapeutic INR (4 highest) with no active bleeding - higher today from 3 - vit K 5 x 1m recheck INR tmr, hold warf, ok to resume all other meds GEn weakness, - back to [facility] on dc MIld KODY, VMN - creat 3,.2, gentle hydrate - baseline 1,.7 -2 based on my review, recheck tmr, avoid nephrotoxins, hold lasix if on any Mild hyponatremia 132- could be sec to home lasix Final Diagnosis Problems Medical Problems: (1) Acute on chronic renal failure Status: Acute (2) Coagulopathy Status: Acute (3) Hyponatremia Status: Acute (4) Lactic acidosis Status: Acute (5) Metabolic encephalopathy Status: Acute Brief Hospital Course Allergies Allergies Coded Allergies Type Severity Reaction Last Updated Verified Penicillins Allergy Intermediate 03/03/19 Yes Vital Signs Vital Signs Date Time Temp Pulse Resp B/P (MAP) Pulse Ox O2 Delivery O2 Flow Rate FiO2 03/22/19 07:35 108 147/64 03/22/19 07:00 97.2 16 93 Room Air 97.2 03/22/19 03:53 2.0 Lab Results Laboratory Tests Test 03/20/19 20:10 03/21/19 07:30 03/22/19 03:15 Hemoglobin 8.8 g/dL (12.0-15.5) Hematocrit 27.0 % (36.0-47.0) Mean Corpuscular Hemoglobin Concent 33 g/dL (31-37) Prothrombin Time 21.6 SEC (11.7-14.0) 27.0 SEC (11.7-14.0) Prothromb Time International Ratio 1.9 (0.8-1.1) 2.5 (0.8-1.1) Laboratory Tests Test 03/22/19 03:15 Prothrombin Time 27.0 SEC (11.7-14.0) Prothromb Time International Ratio 2.5 (0.8-1.1) Brief Hospital Course Ms. Montoya is a 88 old who had a recent hip sx here but had a non injury fall at SNU, BUt somehow ended up too long here in hospital (holiday weekends?), SHe denies any cardic hx thathappened to her here, SHe has a mechanical AV so on warf at goal 2-3, SHe had mildly elev INR but no bleeding and now INR at goal. She also has some urinary retention, attempted dc [place] 12.29 only to be put back in on 03.19, So going to pplace, known DNR on warf and pain med and to [facility] dw RN gem \ Pt seen and examined Discharge Information Condition at Discharge: Improved, Stable Disposition/Orders: Other (U pplace) Scheduled Allopurinol (Allopurinol) 300 Mg Tablet, 1 TAB PO DAILY, #30 Ref 5 (Reported) Entered as Reported by: LENARD PITTS on 08/13/14 1624 Last Taken: Unknown Dose on Unknown Date & Time Last Action: Continued on 03/17/19838 by REBEKAH AKINS Amlodipine Besylate (Amlodipine Besylate) 5 Mg Tablet, 5 MG PO DAILY for htn for 30 Days, #30 Ref 11 (Reported) Entered as Reported by: BECKY MORAN MD on 03/04/19 0902 Last Taken: Unknown Dose on Unknown Date & Time Last Action: Continued on 03/17/19838 by REBEKAH AKINS Ascorbic Acid (Vitamin C) 500 Mg Tablet, 500 MG PO DAILY for mvi, #30 Prescribed by: REBEKAH AKINS on 03/22/19 0730 Folic Acid/Vitamin B Comp W-C (Nephro-Vonda Tablet) 0.8 Mg Tablet, 1 TAB PO DAILY, #30 Ref 5 (Reported) Entered as Reported by: BECKY MCKEON on 08/14/14 0233 Last Taken: Unknown Dose on Unknown Date & Time Last Action: Continued on 03/17/19838 by REBEKAH AKINS Furosemide (Furosemide) 20 Mg Tablet, 20 MG PO DAILY for chf, (Reported) Entered as Reported by: KIMANI ARRIOLA RN on 03/03/19 222 Last Taken: Unknown Dose on Unknown Date & Time Last Action: Continued on 03/17/19838 by REBEKAH AKINS Isosorbide Mononitrate (Isosorbide Mononitrate Er) 30 Mg Tab.er.24h, 1 TAB PO DAILY, #30 Ref 5 (Reported) Entered as Reported by: BECKY MCKEON on 08/14/14232 Last Taken: Unknown Dose on Unknown Date & Time Last Action: Continued on 03/17/19838 by REBEKAH AKINS Levofloxacin (Levaquin) 500 Mg Tablet, 1 TAB PO DAILY for HCAP for 7 Days, #7 Ref 0 Prescribed by: REBEKAH AKINS on 03/22/19 0732 Lisinopril (Lisinopril) 5 Mg Tablet, 1 TAB PO DAILY, #30 Ref 5 (Reported) Entered as Reported by: BECKY MCKEON on 08/14/14232 Last Taken: Unknown Dose on Unknown Date & Time Last Action: Continued on 03/17/19838 by REBEKAH AKINS Multivits,Ca,Minerals/Iron/Fa (Thera-M Tablet) 1 Each Tablet, 1 TAB PO DAILY for mvi, #30 Prescribed by: REBEKAH AKINS on 03/22/1930 Omeprazole (Omeprazole) 20 Mg Capsule.dr, 1 CAP PO DAILY, #30 Ref 5 (Reported) Entered as Reported by: BECKY MCKEON on 08/14/14232 Last Taken: Unknown Dose on Unknown Date & Time Last Action: Converted on 03/17/19838 by REBEKAH AKINS Propafenone Hcl (Propafenone Hcl) 150 Mg Tablet, 150 MG PO TID, (Reported) Entered as Reported by: LENARD PITTS on 08/13/14 162 Last Taken: Unknown Dose on Unknown Date & Time Last Action: Continued on 03/17/19838 by REBEKAH AKINS Warfarin Sodium (Warfarin Sodium) 3 Mg Tablet, 1 TAB PO DAILY, #30 Ref 5 (Reported) Entered as Reported by: LENARD PITTS on 08/13/14 162 Last Taken: Unknown Dose on Unknown Date & Time Last Action: HELD on 03/17/19838 by REBEKAH AKINS Scheduled PRN Acetaminophen (Tylenol Extra Strength) 500 Mg Tablet, 1,000 MG PO TID PRN PRN for PAIN, (Reported) Entered as Reported by: MUNA BERNABE on 03/17/19 0356 Last Taken: 1000mg on Unknown Date & Time Last Action: Continued on 03/17/19838 by REBEKAH AKINS Albuterol Sulfate (Proair Hfa) 8.5 Gm Hfa.aer.ad, 2.5 MG NEB PRN Q4HRS PRN for SHORTNESS OF BREATH for 30 Days Prescribed by: REBEKAH AKINS on 03/22/19 0730 Cyclobenzaprine Hcl (Cyclobenzaprine Hcl) 10 Mg Tablet, 10 MG PO PRN Q8HRS PRN for MUSCLE SPASMS, #30 Prescribed by: REBEKAH AKINS on 03/09/19 0831 Last Action: Continued on 03/17/19838 by REBEKAH AKINS Hydrocodone Bit/Acetaminophen (Hydrocodone-Apap 5-325 ) 1 Tab Tablet, 1 TAB PO PRN Q4HRS PRN for MODERATE PAIN, #20 Prescribed by: REBEKAH AKINS on 03/22/19 0730 Discontinued Medications Metoprolol Succinate (Metoprolol Succinate ( Xl )) 25 Mg Tab.er.24h, 1 TAB PO DAILY, #30 Ref 5 (Reported) Entered as Reported by: LENARD PITTS on 08/13/14 1627 Last Taken: Unknown Dose on Unknown Date & Time Last Action: HELD on 03/17/19838 by REBEKAH AKINS Tizanidine Hcl (Tizanidine Hcl) 4 Mg Tablet, 4 MG PO Q8HRS prn for muscle spasms, (Reported) Entered as Reported by: MUNA BERNABE on 03/17/19 0356 Last Taken: Unknown Dose on Unknown Date & Time Last Action: Continued on 03/17/19838 by REBEKAH CORDERO MD Mar 22, 2019 11:35
--- NOTE | 2019-03-22 12:13 | NUR ---
SS following up with discharge planning. Discharge orders received for [facility], ; fax [phone]. SS phoned and faxed discharge orders to [facility]. [facility] arranging transport and will notify SS of time. SS will continue to follow for discharge planning.
--- NOTE | 2019-03-22 12:30 | NUR ---
SS following up with discharge planning. [facility] contacted SS and reported that [employer] transport will pear picker pt via stretcher between 1445 and 1500. Pt, pt's family, and pt's RN notified.
--- NOTE | 2019-03-22 12:52 | NUR ---
patient was able to hold her pudding, and apple sauce and was able to eat on her own. patient able to pick remover her cup and eat ice chips, drink her water without any complications
[2019-03-22] MEDS ORDERED: FUROSEMIDE 40 MG TABLET. PO PRN (14:00)
[2019-03-22] MEDS ORDERED: FUROSEMIDE 40 MG TABLET. PO ONE (14:00)
--- NOTE | 2019-03-22 14:03 | PDOC ---
CARDIO Progress Notes Date and Time Date of Service 03/22/2019 Time of Evaluation 1340 Subjective Subjective: No Chest Pain, No shortness of breath, No Palpitations, Other (wants to get transferred today to SNU) Vitals Vitals Vital Signs Date Time Temp Pulse Resp B/P (MAP) Pulse Ox O2 Delivery O2 Flow Rate FiO2 03/22/19 11:00 98.4 95 16 134/61 (85) 91 Nasal Cannula 3.0 98.4 Weight Weight [ ] Input and Output Intake and Output Intake and Output 03/22/19 07:00 Intake Total 120 ml Output Total 800 ml Balance -680 ml Intake Oral 120 ml Output Urine Total 800 ml Laboratory Labs Laboratory Tests Test 03/22/19 03:15 Prothrombin Time 27.0 SEC (11.7-14.0) Prothromb Time International Ratio 2.5 (0.8-1.1) Physical Exam HEENT: Neck Supple W Full Motion Chest: Symmetric LUNGS: Other (basilar crackles) Heart: irregularly irregular (AFIB 90-100) Abdomen: Soft N/T Extremities: Other (1+ bilateral LE edema ) Neurology: alert, oriented, follow commands, confused Assessment Assessment 1. Mechanical fall. Recent left femoral neck fracture; s/p arthroplasty secondary to mechanical fall 2. Metabolic encephalopathy: resolved 3. Acute on chronic diastolic CHF: appears compensated 4. Persistent AFIB 5. Bradycardia- lowest low40s possibly vagal, no pauses. 6. Hypertension; controlled 7. KODY on CKD; better 8. s/p mechanical valve replacement. Echo 01/06 wtih normal valve function. LVEF preserved. INR 2.5 9. Anemia of chronic disease: S/P transfusion, no obvious bleed Recommendations 1. Erratic fluid intake. Discussed hydration adequacy. Lasix today x1 and PRN per overt symptoms. 2. DC rythmol and start on low dose metoprolol tartrate 12.5 mg bid 3. Coumadin with INR goal 2-3 4. Will consider for [facility] as an outpt and will send to SNU/[facility] if facility allows it. 5. Continue secondary prevention, follow up with Dr. Horan as scheduled ANISH RUSH APRN Mar 22, 2019 14:03
[2019-03-22] MEDS ORDERED: METO25TA4 PO (14:30)
--- NOTE | 2019-03-22 14:50 | NUR ---
Pharmacy Warfarin Dosing Note S: Pharmacy consulted to assist with anticoagulation therapy O: ERROL HODGE is a 88 year old F with Atrial Fibrillation, Mechanical Aortic Valve LABS: Last INR: 2.5 Last HGB: 8.8 Last HCT: 27 Last PLT: 507 Last dose of 2.5 mg given on 03/20/19 at 1737 Vitamin K given: Y 5MG SQ X 1 03/17 Ongoing Drug Interactions: LEVAQUIN A:INR of 2.5 is within desired range. Target range for this patient is: 2 - 3. Per chart, patient did not receive warfarin dose on 03/21/19 due to NPO status. INR trending up despite this. Due to INR within goal range, will request D/C of therapeutic Lovenox. P: Warfarin dose: 2 mg Today at 1600 Bridge Therapy: Enoxaparin 1 mg/kg q24h Next INR due 03/23/18 Pharmacy anticoagulation service will continue to follow. CHRISTA ORTIZ [facility], 03/22/19 1091
[2019-03-22] MEDS ORDERED: WARFARIN 2 MG TABLET. PO ONE (15:00)
[2019-03-22 15:11] VITALS: BP 152/69
--- NOTE | 2019-03-22 16:04 | NUR ---
Discharge Note: ERROL HODGE Discharge instructions and discharge home medications reviewed with Other facility and a copy given. All questions have been answered and understanding verbalized. The following instructions and handouts were given: MEDICATION LIST, WRITTEN PRESCRIPTIONS IN PACKET Discontinued lines and drains: IV DISCONTINUED AND DRESSING CLEAN DRY Intact. Patient discharged to [facility] with EMS via [facility]
[2019-03-22] MEDS ORDERED: METOPROLOL TART IMMED RELEASE 25 MG TABLET. PO SCH (21:00)
== END 2019-03-22 15:40 | DRG 682 ==
LOC: ER 22:34 → 1 WEST ICU 03-17 00:57 → 2 SOUTH 03-17 11:17 → 5 SOUTH 03-18 13:49 → 6 SOUTH 03-20 15:05 → 2 NORTH 03-21 16:34
PROVIDERS: ADMIT Internal Medicine; ATTEND Internal Medicine
PROC: 30233N1 Transfusion of Nonautologous Red Blood Cells into Peripheral Vein, Percutaneous Approach (ICD-10-PCS; principal; 2019-03-17)
DX: N17.9 Acute kidney failure, unspecified (principal); G93.41 Metabolic encephalopathy; I50.33 Acute on chronic diastolic (congestive) heart failure; I13.2 Hypertensive heart and chronic kidney disease with heart failure and with stage 5 chronic kidney disease, or end stage renal disease; E87.1 Hypo-osmolality and hyponatremia; I48.19 Other persistent atrial fibrillation; N39.0 Urinary tract infection, site not specified; N18.6 End stage renal disease; K21.9 Gastro-esophageal reflux disease without esophagitis; D63.8 Anemia in other chronic diseases classified elsewhere; Y95 Nosocomial condition; Z66 Do not resuscitate; Z79.01 Long term (current) use of anticoagulants; Z79.899 Other long term (current) drug therapy; Z95.2 Presence of prosthetic heart valve
CPT/HCPCS: 36415; 36600; 70450; 71045; 73502; 73560; 80048; 80053; 81001; 82805; 82962; 83605; 83880; 84484; 85014; 85018; 85025; 85610; 86850; 86900; 86901; 86920; 93005; 94640; 94760; 96360; 96361; A4314; J1160; J1650; J1940; J1956; J3430; J7030; J7613; P9016; 97110; 97530; 99291-25; G0378